=== PATIENT | male | born 1945 | race Caucasian/White ===

== ENCOUNTER 2017-02-24 12:06 | Inpatient (IN) | payer MEDICARE, OTHER ==
--- NOTE | 2017-02-24 13:12 | ED ---
General Adult HPI - General Chief complaint: Shortness of Breath Stated complaint: pneumonia Time Seen by Provider: 02/24/17 12:19 Source: patient, RN notes reviewed, old records reviewed Mode of arrival: wheelchair Limitations: no limitations - History of Present Illness Initial comments: This is a 71-year-old female to the ER for evaluation today. This patient's presenting for evaluation regards to shortness of breath cough congestion diagnoses of likely pneumonia. Patient has history of heart disease high blood pressure heart failure. Patient complaining of increasing shortness of breath increasing cough congestion, no fevers. No recent travel history no recent sick contacts, patient denies recent hospitalizations - Related Data Home Medications Medication Instructions Recorded Confirmed Cholecalciferol [Vitamin D3] 5,000 unit PO DAILY 12/20/14 02/24/17 Diazepam [Valium] 10 mg PO HS PRN 12/20/14 02/24/17 Furosemide [Lasix] 40 mg PO DAILY 12/20/14 02/24/17 Levothyroxine Sodium [Synthroid] 100 mcg PO DAILY 12/20/14 02/24/17 Losartan Potassium [Cozaar] 25 mg PO HS 12/20/14 02/24/17 Metoprolol Succinate [Toprol XL] 50 mg PO BID 12/20/14 02/24/17 Multivit-Min/FA/Lycopen/Lutein 1 tab PO DAILY 12/20/14 02/24/17 [Centrum Silver Tablet] Potassium Chloride [Klor-Con 20] 20 meq PO DAILY 12/20/14 02/24/17 Rivaroxaban [Xarelto] 20 mg PO W/SUPPER 12/20/14 02/24/17 Aspirin 81 mg PO DAILY 02/24/17 02/24/17 metFORMIN HCL [Glucophage Xr] 750 mg PO PC-SUPPER 02/24/17 02/24/17 Allergies Allergy/AdvReac Type Severity Reaction Status Date / Time No Known Allergies Allergy Verified 02/24/17 13:05 Review of Systems ROS Statement: Those systems with pertinent positive or pertinent negative responses have been documented in the HPI. ROS Other: All systems not noted in ROS Statement are negative. Past Medical History Past Medical History: Heart Failure, Diabetes Mellitus, Hypertension, Myocardial Infarction ([place]), Osteoarthritis (OA), Thyroid Disorder Additional Past Medical History / Comment(s): TOLD HAD "STROKE OR [place]." CARDIOMYOPATHY. SEE DR MACDONALD'S H&P. HX ALCOHOLISM. SHORT OF BREATH W/ ACTIVITY. Last Myocardial Infarction Date:: UNKNOWN History of Any Multi-Drug Resistant Organisms: None Reported Past Surgical History: AICD Additional Past Surgical History / Comment(s): AICD - [employer] 08/24/[address] [facility]. COLONOSCOPY. Past Anesthesia/Blood Transfusion Reactions: No Reported Reaction Type of Cardiac Device: AICD Device Placement Date:: 08/2014 Past Psychological History: Anxiety, Depression Smoking Status: Former smoker - Past Family History Mother Family Medical History: No Reported History General Exam Limitations: no limitations General appearance: alert, in no apparent distress Head exam: Present: atraumatic, normocephalic, normal inspection Eye exam: Present: normal appearance, PERRL, EOMI. Absent: scleral icterus, conjunctival injection, periorbital swelling ENT exam: Present: normal exam, mucous membranes moist Neck exam: Present: normal inspection. Absent: tenderness, meningismus, lymphadenopathy Respiratory exam: Present: normal lung sounds bilaterally. Absent: respiratory distress, wheezes, rales, rhonchi, stridor Cardiovascular Exam: Present: regular rate, normal rhythm, normal heart sounds. Absent: systolic murmur, diastolic murmur, rubs, gallop, clicks GI/Abdominal exam: Present: soft, normal bowel sounds. Absent: distended, tenderness, guarding, rebound, rigid Extremities exam: Present: normal inspection, full ROM, normal capillary refill. Absent: tenderness, pedal edema, joint swelling, calf tenderness Back exam: Present: normal inspection Neurological exam: Present: alert, oriented X3, CN II-XII intact Psychiatric exam: Present: normal affect, normal mood Skin exam: Present: warm, dry, intact, normal color. Absent: rash Course Vital Signs 02/24/17 02/24/17 02/24/17 12:20 12:40 13:30 Temperature 97.3 F L Pulse Rate 82 73 Respiratory 24 24 24 Rate Blood Pressure 154/64 O2 Sat by Pulse 92 L 89 L Oximetry 02/24/17 02/24/17 13:35 13:55 Temperature Pulse Rate 84 91 Respiratory Rate Blood Pressure O2 Sat by Pulse Oximetry - Reevaluation(s) Reevaluation #1: 02/24/17 14:31 Patient feels better after breathing treatment, cough is improved Medical Decision Making - Medical Decision Making 68 female the ER for evaluation. This patient presents today for evaluation regarding cough and congestion x-ray positive for pneumonia. Patient will be admitted for IV antibiotics. Continuous breathing treatments and monitoring of cardiopulmonary status - Lab Data Result diagrams: 02/24/17 12:50 02/24/17 12:50 Lab Results 02/24/17 02/24/17 02/24/17 Range/Units 12:50 12:50 12:50 WBC 10.4 (3.8-10.6) k/uL RBC 4.16 L (4.30-5.90) m/uL Hgb 13.2 (13.0-17.5) gm/dL Hct 42.9 (39.0-53.0) % MCV 103.2 H (80.0-100.0) fL MCH 31.8 (25.0-35.0) pg MCHC 30.8 L (31.0-37.0) g/dL RDW 15.7 H (11.5-15.5) % Plt Count 313 (150-450) k/uL Neutrophils % (Manual) 70 % Band Neutrophils % 1 % Lymphocytes % (Manual) 25 % Monocytes % (Manual) 5 % Eosinophils % (Manual) 1 % Myelocytes % 1 % Neutrophils # (Manual) 7.30 (1.3-7.7) k/uL Lymphocytes # (Manual) 2.60 (1.0-4.8) k/uL Monocytes # (Manual) 0.52 (0-1.0) k/uL Eosinophils # (Manual) 0.10 (0-0.7) k/uL Myelocytes # (Manual) 0.10 H (0) k/uL Nucleated RBCs 0 (0-0) /100 WBC Manual Slide Review Performed Toxic Granulation Present Large Platelets Present Hypochromasia Slight Poikilocytosis (manual Present Macrocytosis Slight PT (9.0-12.0) sec INR (<1.2) APTT (22.0-30.0) sec Sodium 140 (137-145) mmol/L Potassium 3.5 (3.5-5.1) mmol/L Chloride 97 L (98-107) mmol/L Carbon Dioxide 29 (22-30) mmol/L Anion Gap 14 mmol/L BUN 10 (9-20) mg/dL Creatinine 0.90 (0.66-1.25) mg/dL Est GFR (MDRD) Af Amer >60 (>60 ml/min/1.73 sqM) Est GFR (MDRD) Non-Af >60 (>60 ml/min/1.73 sqM) Glucose 132 H (74-99) mg/dL Plasma Lactic Acid Saul (0.7-2.0) mmol/L Calcium 9.7 (8.4-10.2) mg/dL Total Bilirubin 0.7 (0.2-1.3) mg/dL AST 49 (17-59) U/L ALT 56 (21-72) U/L Alkaline Phosphatase 114 (38-126) U/L Total Creatine Kinase 45 L (55-170) U/L CK-MB (CK-2) 2.2 (0.0-2.4) ng/mL CK-MB (CK-2) Rel Index 4.9 Troponin I 0.045 H* (0.000-0.034) ng/mL Total Protein 7.9 (6.3-8.2) g/dL Albumin 3.8 (3.5-5.0) g/dL 02/24/17 02/24/17 Range/Units 12:50 12:50 WBC (3.8-10.6) k/uL RBC (4.30-5.90) m/uL Hgb (13.0-17.5) gm/dL Hct (39.0-53.0) % MCV (80.0-100.0) fL MCH (25.0-35.0) pg MCHC (31.0-37.0) g/dL RDW (11.5-15.5) % Plt Count (150-450) k/uL Neutrophils % (Manual) % Band Neutrophils % % Lymphocytes % (Manual) % Monocytes % (Manual) % Eosinophils % (Manual) % Myelocytes % % Neutrophils # (Manual) (1.3-7.7) k/uL Lymphocytes # (Manual) (1.0-4.8) k/uL Monocytes # (Manual) (0-1.0) k/uL Eosinophils # (Manual) (0-0.7) k/uL Myelocytes # (Manual) (0) k/uL Nucleated RBCs (0-0) /100 WBC Manual Slide Review Toxic Granulation Large Platelets Hypochromasia Poikilocytosis (manual Macrocytosis PT 15.5 H (9.0-12.0) sec INR 1.7 H (<1.2) APTT 35.0 H (22.0-30.0) sec Sodium (137-145) mmol/L Potassium (3.5-5.1) mmol/L Chloride (98-107) mmol/L Carbon Dioxide (22-30) mmol/L Anion Gap mmol/L BUN (9-20) mg/dL Creatinine (0.66-1.25) mg/dL Est GFR (MDRD) Af Amer (>60 ml/min/1.73 sqM) Est GFR (MDRD) Non-Af (>60 ml/min/1.73 sqM) Glucose (74-99) mg/dL Plasma Lactic Acid Saul 1.3 (0.7-2.0) mmol/L Calcium (8.4-10.2) mg/dL Total Bilirubin (0.2-1.3) mg/dL AST (17-59) U/L ALT (21-72) U/L Alkaline Phosphatase (38-126) U/L Total Creatine Kinase (55-170) U/L CK-MB (CK-2) (0.0-2.4) ng/mL CK-MB (CK-2) Rel Index Troponin I (0.000-0.034) ng/mL Total Protein (6.3-8.2) g/dL Albumin (3.5-5.0) g/dL - Radiology Data Radiology results: report reviewed (Chest x-rays positive for pneumonia), image reviewed Disposition Clinical Impression: Acute exacerbation of chronic obstructive airways disease, Community acquired pneumonia Disposition: ADMITTED IP TO THIS [facility] Condition: Fair Referrals: Mal Ley DO [Primary Care Provider] - 1-2 days
[2017-02-24 13:15] LABS: HCT 42.9 % (39.0-53.0); HGB 13.2 gm/dL (13.0-17.5); Hypochromasia Slight; MCH 31.8 pg (25.0-35.0); MCHC 30.8 g/dL (31.0-37.0); MCV 103.2 fL (80.0-100.0); Macrocytosis Slight; Mean Platelet Volume 10.1; Platelet Count 313 k/uL (150-450); RBC 4.16 m/uL (4.30-5.90); RDW 15.7 % (11.5-15.5); WBC 10.4 k/uL (3.8-10.6)
--- NOTE | 2017-02-24 13:16 | XR ---
EXAMINATION TYPE: XR chest 2V DATE OF EXAM: 02/24/2017 COMPARISON: NONE INDICATION: Difficulty breathing short of breath TECHNIQUE: Frontal and lateral views of the chest are obtained. FINDINGS: The heart size is normal. The pulmonary vasculature is normal. There is a lingular infiltrate present. Minimal right lower lobe infiltrate may be present. Pacemaker overlies left chest.. IMPRESSION: 1. Lingular infiltrate with possible minimal right lower lobe infiltrate. Correlate for pneumonia.
[2017-02-24 13:22] LABS: ALT 56 U/L (21-72); AST 49 U/L (17-59); Albumin 3.8 g/dL (3.5-5.0); Alkaline Phosphatase 114 U/L (38-126); Anion Gap 14 mmol/L; Blood Urea Nitrogen 10 mg/dL (9-20); Calcium 9.7 mg/dL (8.4-10.2); Carbon Dioxide 29 mmol/L (22-30); Chloride 97 mmol/L (98-107); Glucose 132 mg/dL (74-99); INR 1.7 (<1.2); Potassium 3.5 mmol/L (3.5-5.1); Prothrombin Time 15.5 sec (9.0-12.0); Sodium 140 mmol/L (137-145); Total Bilirubin 0.7 mg/dL (0.2-1.3); Total Protein 7.9 g/dL (6.3-8.2)
[2017-02-24] MEDS ORDERED: IPRATROPIUM-ALBUTEROL 3 ML NEB INHALATION STA (13:29)
[2017-02-24 13:35] LABS: Band Neutrophils % 1 %; Myelocytes % 1 %; Nucleated Red Blood Cells 0 /100 WBC (0-0)
[2017-02-24 13:37] LABS: Large Platelets Present; Monocytes # (M) 0.52 k/uL (0-1.0); Neutrophils % (M) 70 %; Total Cells Counted 200
[2017-02-24 13:38] LABS: Poikilocytosis (M) Present; Toxic Granulation Present
[2017-02-24 13:42] LABS: Creatine Kinase MB 2.2 ng/mL (0.0-2.4)
[2017-02-24 13:46] LABS: Troponin I 0.045 ng/mL (0.000-0.034)
[2017-02-24] MEDS ORDERED: LEVOFLOXACIN 750MG-D5W PMX 750 MG in DEXTROSE/WATER 1 150ML.BAG IVPB STA (14:19)
[2017-02-24] MEDS ORDERED: PNEUMONIA PROTOCOL UTILIZED 1 EACH MISC PO PRN (14:19)
[2017-02-24] MEDS ORDERED: SODIUM CHLORIDE 0.9% 1,000 ML IV SCH (14:30)
[2017-02-24] MEDS: INSULIN ASPART 100 UNIT/ML 1 ML 10 ML VIAL SQ SCH ×2 (17:08→22:42)
[2017-02-24] MEDS: RIVAROXABAN 10 MG TAB PO SCH (17:08)
[2017-02-24] MEDS: metFORMIN 500 MG TAB PO SCH (17:09)
[2017-02-24] MEDS: THIAMINE 100 MG TAB PO SCH (17:09)
[2017-02-24 17:12] LABS: Glucose,Whole Blood 105 mg/dL (75-99)
[2017-02-24] MEDS: METOPROLOL SUCCINATE (ER) 50 MG TAB.ER.24H PO SCH (20:00)
[2017-02-24] MEDS: LOSARTAN 25 MG TAB PO SCH (20:00)
[2017-02-24 20:27] LABS: Glucose,Whole Blood 113 mg/dL (75-99)
--- NOTE | 2017-02-24 22:36 | P.HPIM ---
History of Present Illness H&P Date: 02/24/17 Chief Complaint: Shortness of breath Patient is a 71-year-old male with a known history of hypertension, diabetes type 2 [id number], atrial fibrillation on anticoagulation and also history of pacemaker/AICD placement came to ER with complaints of shortness of breath and cough with yellowish sputum production and was telling that he has pneumonia. Patient had similar symptoms when he had pneumonia a few years ago. Denied any fever or chills. No recent illnesses. Patient was initially presented to [facility] on February 08 status post fall when he was picking up mailbox. Patient left AMA after 4 today and after 4 days patient went to [facility] where he was admitted for 4-5 days. Patient was sent home and he still having shortness of breath and worsening cough at this time which made him come to ER. Otherwise patient denied any nausea vomiting or abdominal pain. No recent travel. Denied any leg swelling. Patient continues to smoke 1 pack per day. Patient did drink 1/5th for 3 consecutive days about a week back. Patient says that he quit alcohol 4 years ago Chest x-ray showed lingular infiltrate and was admitted to hospital for pneumonia. Troponin 0.045 angina 0.049 Review of Systems Constitutional: Patient denies any fever or chills . No generalized weakness or weight loss. Abdomen: Patient denied nausea vomiting and diarrhea and abdominal pain. Cardiovascular: Patient denies any chest pain . no palpitations. Respiratory: Patient does have cough with yellowish sputum production and shortness of breath Neurologic: Patient denied any numbness or tingling headache. Musculoskeletal: Patient denies any complaints of joint swelling or deformity. Skin: Negative Psychiatric: Negative Endocrine: No heat or cold intolerance. No recent weight gain. Genitourinary: No dysuria or hematuria. All other 14 point ROS negative except the above Past Medical History Past Medical History: Heart Failure, Diabetes Mellitus, Hypertension, Myocardial Infarction ([place]), Osteoarthritis ([place]), Thyroid Disorder Additional Past Medical History / Comment(s): TOLD HAD "STROKE OR [place]." CARDIOMYOPATHY. SEE DR MACDONALD'S H&P. HX ALCOHOLISM. SHORT OF BREATH W/ ACTIVITY. Last Myocardial Infarction Date:: UNKNOWN History of Any Multi-Drug Resistant Organisms: None Reported Past Surgical History: AICD Additional Past Surgical History / Comment(s): AICD - [employer] 08/24/14 AT [facility]. COLONOSCOPY. Past Anesthesia/Blood Transfusion Reactions: No Reported Reaction Type of Cardiac Device: AICD Device Placement Date:: 08/2014 Past Psychological History: Anxiety, Depression Smoking Status: Former smoker - Past Family History Mother Family Medical History: No Reported History Father History Unknown: Yes Additional Family Medical History / Comment(s): was healthy Medications and Allergies Home Medications Medication Instructions Recorded Confirmed Type Cholecalciferol [Vitamin D3] 5,000 unit PO DAILY 12/20/14 02/24/17 History Diazepam [Valium] 10 mg PO HS PRN 12/20/14 02/24/17 History Furosemide [Lasix] 40 mg PO DAILY 12/20/14 02/24/17 History Levothyroxine Sodium [Synthroid] 100 mcg PO DAILY 12/20/14 02/24/17 History Losartan Potassium [Cozaar] 25 mg PO HS 12/20/14 02/24/17 History Metoprolol Succinate [Toprol XL] 50 mg PO BID 12/20/14 02/24/17 History Multivit-Min/FA/Lycopen/Lutein 1 tab PO DAILY 12/20/14 02/24/17 History [Centrum Silver Tablet] Potassium Chloride [Klor-Con 20] 20 meq PO DAILY 12/20/14 02/24/17 History Rivaroxaban [Xarelto] 20 mg PO W/SUPPER 12/20/14 02/24/17 History Aspirin 81 mg PO DAILY 02/24/17 02/24/17 History metFORMIN HCL [Glucophage Xr] 750 mg PO PC-SUPPER 02/24/17 02/24/17 History Allergies Allergy/AdvReac Type Severity Reaction Status Date / Time No Known Allergies Allergy Verified 02/24/17 13:05 Physical Exam Vitals: Vital Signs Temp Pulse Resp BP Pulse Ox 02/24/17 15:51 98.6 F 100 18 123/65 98 02/24/17 14:51 112 H 20 125/73 97 02/24/17 13:55 91 02/24/17 13:35 84 02/24/17 13:30 73 24 89 L 02/24/17 12:40 24 02/24/17 12:20 97.3 F L 82 24 154/64 92 L Intake and Output 02/24/17 02/24/17 02/24/17 06:59 14:59 22:59 Other: Weight 58.967 kg Patient Weight 02/25/17 06:59 Weight 58.967 kg PHYSICAL EXAMINATION: Patient is lying in the bed comfortably, mild distress, awake alert and oriented.. HEENT: Normocephalic. Neck is supple. Pupils reactive. Nostrils clear. Oral cavity is moist. Ears reveal no drainage. Neck reveals no JVD, carotid bruits, or thyromegaly. CHEST EXAMINATION: Trachea is central. Symmetrical expansion. Bilateral diminished breath sounds basally. Rhonchi present. No wheezing CARDIAC: Normal S1, S2 with no gallops. No murmurs ABDOMEN: Soft. Bowel sounds normal. No organomegaly. No abdominal bruits. Extremities: reveal no edema. No clubbing or cyanosis Neurologically awake, alert, oriented x3 with well-coordinated movements. No focal deficits noted Skin: No rash or skin lesions. Psychiatric: Cooperative. Nonsuicidal Musculoskeletal: No joint swelling or deformity. Normal range of motion. Results CBC & Chem 7: 02/24/17 12:50 02/24/17 12:50 Labs: Abnormal Lab Results - Last 24 Hours (Table) 02/24/17 02/24/17 02/24/17 Range/Units 12:50 12:50 12:50 RBC 4.16 L (4.30-5.90) m/uL MCV 103.2 H (80.0-100.0) fL MCHC 30.8 L (31.0-37.0) g/dL RDW 15.7 H (11.5-15.5) % Myelocytes # (Manual) 0.10 H (0) k/uL PT (9.0-12.0) sec INR (<1.2) APTT (22.0-30.0) sec Chloride 97 L (98-107) mmol/L Glucose 132 H (74-99) mg/dL Total Creatine Kinase 45 L (55-170) U/L Troponin I 0.045 H* (0.000-0.034) ng/mL 02/24/17 Range/Units 12:50 RBC (4.30-5.90) m/uL MCV (80.0-100.0) fL MCHC (31.0-37.0) g/dL RDW (11.5-15.5) % Myelocytes # (Manual) (0) k/uL PT 15.5 H (9.0-12.0) sec INR 1.7 H (<1.2) APTT 35.0 H (22.0-30.0) sec Chloride (98-107) mmol/L Glucose (74-99) mg/dL Total Creatine Kinase (55-170) U/L Troponin I (0.000-0.034) ng/mL Assessment and Plan Assessment: Left lower lobe pneumonia and tracheobronchitis Elevated troponin likely due to demand mismatch. Rule out ACS Atrial fibrillation on anticoagulation. Rate controlled Hypertension Diabetes type 2 [id number] Hypothyroidism Recent alcohol use Nicotine addiction Plan: Patient will be continued on antibiotics in the form of levofloxacin. Follow- up serial EKG and troponins. We will check a BNP. Continue with home medications. Smoking cessation has been counseled. We will consider cardiology evaluation. Further recommendations based on clinical course. Sputum culture has been sent. Time with Patient: Greater than 30
[2017-02-25 05:43] LABS: HCT 39.8 % (39.0-53.0); HGB 12.4 gm/dL (13.0-17.5); Hypochromasia Slight; MCH 31.5 pg (25.0-35.0); MCHC 31.1 g/dL (31.0-37.0); Macrocytosis Slight; Mean Platelet Volume 9.5; Platelet Count 268 k/uL (150-450); RBC 3.94 m/uL (4.30-5.90); RDW 15.6 % (11.5-15.5); WBC 8.9 k/uL (3.8-10.6)
[2017-02-25 05:55] LABS: Anion Gap 10 mmol/L; Blood Urea Nitrogen 7 mg/dL (9-20); Calcium 8.8 mg/dL (8.4-10.2); Carbon Dioxide 26 mmol/L (22-30); Chloride 103 mmol/L (98-107); Glucose 102 mg/dL (74-99); Potassium 3.7 mmol/L (3.5-5.1); Sodium 139 mmol/L (137-145)
[2017-02-25] MEDS: LEVOTHYROXINE 100 MCG TAB PO SCH (06:00)
[2017-02-25] MEDS: INSULIN ASPART 100 UNIT/ML 1 ML 10 ML VIAL SQ SCH ×4 (06:09→23:17)
[2017-02-25 06:12] LABS: Glucose,Whole Blood 93 mg/dL (75-99)
--- NOTE | 2017-02-25 07:18 | XR ---
EXAMINATION TYPE: XR chest 2V DATE OF EXAM: 02/25/2017 COMPARISON: 02/24/2017 HISTORY: 71-year-old male follow-up pneumonia TECHNIQUE: Frontal and lateral views FINDINGS: Heart remains borderline enlarged. Mild elongation thoracic aorta. Upper lung lucencies and hyperinfl ation. Possible old sternal fracture deformity versus pectus carinatum deformity. Left anterior chest wall AICD generator with right ventricular lead. Persistent patchy interstitial infiltrates remain w ith its light interval improved aeration at the left lung base. No significant pleural effusion. IMPRESSION: Patchy infiltrates remain at the lung bases with slight interval improved aeration at the left base. Underlying COPD.
[2017-02-25 07:26] LABS: Lymphocytes # (M) 2.14 k/uL (1.0-4.8); Monocytes # (M) 0.53 k/uL (0-1.0); Neutrophils # (M) 6.23 k/uL (1.3-7.7); Neutrophils % (M) 70 %; Nucleated Red Blood Cells 0 /100 WBC (0-0); Total Cells Counted 100
[2017-02-25 07:27] LABS: Target Cells Present
[2017-02-25] MEDS: CHOLECALCIFEROL 1,000 UNIT TAB PO SCH (08:33)
[2017-02-25] MEDS: metFORMIN 500 MG TAB PO SCH ×2 (08:33→17:19)
[2017-02-25] MEDS: THIAMINE 100 MG TAB PO SCH (08:33)
[2017-02-25] MEDS: METOPROLOL SUCCINATE (ER) 50 MG TAB.ER.24H PO SCH ×2 (08:33→19:27)
[2017-02-25] MEDS: ASPIRIN 81 MG PO SCH (08:33)
[2017-02-25] MEDS: MULTIVITAMINS, THERA 1 EACH TAB PO SCH (08:33)
[2017-02-25] MEDS ORDERED: ENOXAPARIN 40 MG/0.4 ML SYRINGE SQ SCH (09:00)
[2017-02-25 12:12] LABS: Glucose,Whole Blood 109 mg/dL (75-99)
[2017-02-25] MEDS: LEVOFLOXACIN 750MG-D5W PMX 750 MG in DEXTROSE/WATER 1 150ML.BAG IVPB SCH (15:17)
[2017-02-25] MEDS: IPRATROPIUM-ALBUTEROL 3 ML NEB INHALATION SCH ×2 (16:43→21:15)
[2017-02-25 16:52] LABS: Glucose,Whole Blood 116 mg/dL (75-99)
[2017-02-25] MEDS: RIVAROXABAN 10 MG TAB PO SCH (17:19)
[2017-02-25] MEDS: LOSARTAN 25 MG TAB PO SCH (19:27)
[2017-02-25 21:11] LABS: Glucose,Whole Blood 132 mg/dL (75-99)
[2017-02-25] MEDS: DIAZEPAM 5 MG TAB PO PRN (23:11)
[2017-02-26 05:41] LABS: Glucose,Whole Blood 104 mg/dL (75-99)
[2017-02-26] MEDS: LEVOTHYROXINE 100 MCG TAB PO SCH (06:20)
[2017-02-26] MEDS: INSULIN ASPART 100 UNIT/ML 1 ML 10 ML VIAL SQ SCH ×4 (06:21→23:24)
[2017-02-26] MEDS: IPRATROPIUM-ALBUTEROL 3 ML NEB INHALATION SCH ×4 (07:58→19:24)
[2017-02-26] MEDS: CHOLECALCIFEROL 1,000 UNIT TAB PO SCH (08:24)
[2017-02-26] MEDS: METOPROLOL SUCCINATE (ER) 50 MG TAB.ER.24H PO SCH ×2 (08:24→23:25)
[2017-02-26] MEDS: MULTIVITAMINS, THERA 1 EACH TAB PO SCH (08:24)
[2017-02-26] MEDS: metFORMIN 500 MG TAB PO SCH ×2 (08:24→17:01)
[2017-02-26] MEDS: ASPIRIN 81 MG PO SCH (08:24)
[2017-02-26] MEDS: THIAMINE 100 MG TAB PO SCH (08:25)
[2017-02-26 12:42] LABS: Glucose,Whole Blood 301 mg/dL (75-99)
[2017-02-26] MEDS: LEVOFLOXACIN 750MG-D5W PMX 750 MG in DEXTROSE/WATER 1 150ML.BAG IVPB SCH (14:44)
[2017-02-26] MEDS: RIVAROXABAN 10 MG TAB PO SCH (16:58)
[2017-02-26 18:05] LABS: Glucose,Whole Blood 72 mg/dL (75-99)
[2017-02-26 20:54] LABS: Glucose,Whole Blood 177 mg/dL (75-99)
--- NOTE | 2017-02-26 21:08 | P.PN ---
Subjective Progress Note Date: 02/25/17 Principal diagnosis: Pneumonia Patient is a 71-year-old male with a known history of hypertension, diabetes type 2 [id number], atrial fibrillation on anticoagulation and also history of pacemaker/AICD placement came to ER with complaints of shortness of breath and cough with yellowish sputum production and was telling that he has pneumonia. Patient had similar symptoms when he had pneumonia a few years ago. Denied any fever or chills. No recent illnesses. Patient was initially presented to [facility] on February 08 status post fall when he was picking up mailbox. Patient left AMA after 4 today and after 4 days patient went to [facility] where he was admitted for 4-5 days. Patient was sent home and he still having shortness of breath and worsening cough at this time which made him come to ER. Otherwise patient denied any nausea vomiting or abdominal pain. No recent travel. Denied any leg swelling. Patient continues to smoke 1 pack per day. Patient did drink 1/5th for 3 consecutive days about a week back. Patient says that he quit alcohol 4 years ago Chest x-ray showed lingular infiltrate and was admitted to hospital for pneumonia. Troponin 0.045 and 0.049 and troponin 045 BNP 5330 02/25/2017 Patient says that his cough is better today and shortness of breath is improving. Otherwise not at baseline. No fever no chills. Leukocytosis improved. No nausea vomiting or abdominal pain. Patient is not eating well. No other acute overnight issues. All other review of systems negative except the above Current medications reviewed Objective - Vital Signs Vital signs: Vital Signs Temp 98.3 F 02/25/17 16:00 Pulse 75 02/25/17 16:58 Resp 20 02/25/17 16:00 BP 113/57 02/25/17 16:00 Pulse Ox 98 02/25/17 16:00 Intake & Output 02/25/17 02/25/17 02/26/17 06:59 18:59 06:59 Intake Total 140 240 Output Total 300 750 Balance -160 -510 Weight 64.5 kg Intake: Oral 140 240 Output: Urine 300 750 Other: Voiding Method Diaper Diaper # Voids 0 1 - Exam Patient is lying in the bed comfortably, mild distress, awake alert and oriented.. HEENT: Normocephalic. Neck is supple. Pupils reactive. Nostrils clear. Oral cavity is moist. Ears reveal no drainage. Neck reveals no JVD, carotid bruits, or thyromegaly. CHEST EXAMINATION: Trachea is central. Symmetrical expansion. Bilateral improved air movement. Rhonchi improved. Mild expiratory wheezing CARDIAC: Normal S1, S2 with no gallops. No murmurs ABDOMEN: Soft. Bowel sounds normal. No organomegaly. No abdominal bruits. Extremities: reveal no edema. No clubbing or cyanosis Neurologically awake, alert, oriented x3 with well-coordinated movements. No focal deficits noted Skin: No rash or skin lesions. Psychiatric: Cooperative. Nonsuicidal Musculoskeletal: No joint swelling or deformity. Normal range of motion. - Labs CBC & Chem 7: 02/25/17 05:24 02/25/17 05:24 Labs: Abnormal Lab Results - Last 24 Hours (Table) 02/24/17 02/25/17 02/25/17 Range/Units 17:54 00:26 05:24 RBC 3.94 L (4.30-5.90) m/uL Hgb 12.4 L (13.0-17.5) gm/dL MCV 101.0 H (80.0-100.0) fL RDW 15.6 H (11.5-15.5) % BUN (9-20) mg/dL Glucose (74-99) mg/dL POC Glucose (mg/dL) (75-99) mg/dL Hemoglobin A1c 7.0 H (4.0-6.0) % Troponin I 0.045 H* (0.000-0.034) ng/mL 02/25/17 02/25/17 02/25/17 Range/Units 05:24 11:49 16:49 RBC (4.30-5.90) m/uL Hgb (13.0-17.5) gm/dL MCV (80.0-100.0) fL RDW (11.5-15.5) % BUN 7 L (9-20) mg/dL Glucose 102 H (74-99) mg/dL POC Glucose (mg/dL) 109 H 116 H (75-99) mg/dL Hemoglobin A1c (4.0-6.0) % Troponin I (0.000-0.034) ng/mL Microbiology - Last 24 Hours (Table) 02/24/17 12:50 Blood Culture - Preliminary Blood No Growth after 24 hours Assessment and Plan Assessment: Left lower lobe pneumonia and tracheobronchitis Elevated troponin likely due to demand mismatch. Ruled out ACS. Troponin trending down. Atrial fibrillation on anticoagulation. Rate controlled Elevated BNP. But no signs of heart failure. History of AICD placement Hypertension Diabetes type 2 [id number] Hypothyroidism Recent alcohol use Nicotine addiction Plan: Patient will be continued on antibiotics in the form of levofloxacin. Patient will be started on DuoNeb's. Sputum culture showed few gram-positive cocci. Continue with home medications. Smoking cessation has been counseled. We will consider cardiology evaluation. Further recommendations based on clinical course. Sputum culture has been sent. Time with Patient: Greater than 30
--- NOTE | 2017-02-26 21:09 | P.PN ---
Subjective Progress Note Date: 02/26/17 Principal diagnosis: Pneumonia Patient is a 71-year-old male with a known history of hypertension, diabetes type 2 [id number]-fcruffuij, atrial fibrillation on anticoagulation and also history of pacemaker/AICD placement came to ER with complaints of shortness of breath and cough with yellowish sputum production and was telling that he has pneumonia. Patient had similar symptoms when he had pneumonia a few years ago. Denied any fever or chills. No recent illnesses. Patient was initially presented to [facility] on February 08 status post fall when he was picking up mailbox. Patient left AMA after 4 today and after 4 days patient went to [facility] where he was admitted for 4-5 days. Patient was sent home and he still having shortness of breath and worsening cough at this time which made him come to ER. Otherwise patient denied any nausea vomiting or abdominal pain. No recent travel. Denied any leg swelling. Patient continues to smoke 1 pack per day. Patient did drink 1/5th for 3 consecutive days about a week back. Patient says that he quit alcohol 4 years ago Chest x-ray showed lingular infiltrate and was admitted to hospital for pneumonia. Troponin 0.045 and 0.049 and troponin 045 BNP 5330 02/25/2017 Patient says that his cough is better today and shortness of breath is improving. Otherwise not at baseline. No fever no chills. Leukocytosis improved. No nausea vomiting or abdominal pain. Patient is not eating well. No other acute overnight issues. 02/26/2017 Patient is improving clinically. Cough improved. PTOT consulted. Patient may need rehab transfer. Otherwise no fever no chills. Continued on antibiotics and breathing treatments. All other review of systems negative except the above Current medications reviewed Objective - Vital Signs Vital signs: Vital Signs Temp 97.7 F 02/26/17 08:00 Pulse 100 02/26/17 12:00 Resp 19 02/26/17 12:00 BP 102/48 02/26/17 12:00 Pulse Ox 91 L 02/26/17 12:00 Intake & Output 02/25/17 02/26/17 02/26/17 18:59 06:59 18:59 Intake Total 240 200 360 Output Total 750 300 Balance -510 200 60 Weight 65 kg 65 kg Intake: Oral 240 200 360 Output: Urine 750 300 Other: Voiding Method Diaper Diaper # Voids 1 - Exam Patient is lying in the bed comfortably, mild distress, awake alert and oriented.. HEENT: Normocephalic. Neck is supple. Pupils reactive. Nostrils clear. Oral cavity is moist. Ears reveal no drainage. Neck reveals no JVD, carotid bruits, or thyromegaly. CHEST EXAMINATION: Trachea is central. Symmetrical expansion. Bilateral improved air movement. Rhonchi improved. CARDIAC: Normal S1, S2 with no gallops. No murmurs ABDOMEN: Soft. Bowel sounds normal. No organomegaly. No abdominal bruits. Extremities: reveal no edema. No clubbing or cyanosis Neurologically awake, alert, oriented x3 with well-coordinated movements. No focal deficits noted Skin: No rash or skin lesions. Psychiatric: Cooperative. Nonsuicidal Musculoskeletal: No joint swelling or deformity. Normal range of motion. - Labs CBC & Chem 7: 02/25/17 05:24 02/25/17 05:24 Labs: Abnormal Lab Results - Last 24 Hours (Table) 02/25/17 02/25/17 02/26/17 Range/Units 16:49 21:08 05:39 POC Glucose (mg/dL) 116 H 132 H 104 H (75-99) mg/dL 02/26/17 Range/Units 11:41 POC Glucose (mg/dL) 301 H (75-99) mg/dL Microbiology - Last 24 Hours (Table) 02/25/17 21:29 Gram Stain - Preliminary Sputum Sputum Culture - Preliminary 02/24/17 12:50 Blood Culture - Preliminary Blood No Growth after 24 hours Assessment and Plan Assessment: Left lower lobe pneumonia and tracheobronchitis Elevated troponin likely due to demand mismatch. Ruled out ACS. Troponin trending down. Atrial fibrillation on anticoagulation. Rate controlled Elevated BNP. But no signs of heart failure. History of AICD placement Hypertension Diabetes type 2 [id number]-wqepuukep Hypothyroidism Recent alcohol use Nicotine addiction Plan: Patient will be continued on antibiotics in the form of levofloxacin. Patient will be started on DuoNeb's. Sputum culture showed few gram-positive cocci. Continue with home medications. Smoking cessation has been counseled. PTOT consulted. Possible rehab transfer in next 24 hours. Further recommendations based on clinical course. Sputum culture has been sent.
[2017-02-26] MEDS: LOSARTAN 25 MG TAB PO SCH (23:25)
[2017-02-26] MEDS: DIAZEPAM 5 MG TAB PO PRN (23:36)
[2017-02-27 06:14] LABS: Glucose,Whole Blood 98 mg/dL (75-99)
[2017-02-27] MEDS: LEVOTHYROXINE 100 MCG TAB PO SCH (06:23)
[2017-02-27 06:58] LABS: HCT 35.4 % (39.0-53.0); HGB 11.4 gm/dL (13.0-17.5); MCH 32.2 pg (25.0-35.0); MCHC 32.3 g/dL (31.0-37.0); MCV 99.7 fL (80.0-100.0); Macrocytosis Slight; Mean Platelet Volume 9.8; Platelet Count 260 k/uL (150-450); RBC 3.55 m/uL (4.30-5.90); RDW 15.5 % (11.5-15.5); WBC 7.9 k/uL (3.8-10.6)
[2017-02-27 07:11] LABS: Anion Gap 9 mmol/L; Blood Urea Nitrogen 7 mg/dL (9-20); Calcium 9.6 mg/dL (8.4-10.2); Carbon Dioxide 29 mmol/L (22-30); Chloride 100 mmol/L (98-107); Glucose 100 mg/dL (74-99); Potassium 3.9 mmol/L (3.5-5.1); Sodium 138 mmol/L (137-145)
[2017-02-27 07:23] LABS: Basophils # (M) 0.16 k/uL (0-0.2); Eosinophils # (M) 0.16 k/uL (0-0.7); Lymphocytes # (M) 1.74 k/uL (1.0-4.8); Monocytes # (M) 0.47 k/uL (0-1.0); Neutrophils # (M) 5.37 k/uL (1.3-7.7); Neutrophils % (M) 68 %; Nucleated Red Blood Cells 0 /100 WBC (0-0); Total Cells Counted 100
[2017-02-27] MEDS: INSULIN ASPART 100 UNIT/ML 1 ML 10 ML VIAL SQ SCH ×4 (08:30→21:32)
[2017-02-27] MEDS: MULTIVITAMINS, THERA 1 EACH TAB PO SCH (08:31)
[2017-02-27] MEDS: METOPROLOL SUCCINATE (ER) 50 MG TAB.ER.24H PO SCH ×2 (08:31→21:32)
[2017-02-27] MEDS: ASPIRIN 81 MG PO SCH (08:31)
[2017-02-27] MEDS: CHOLECALCIFEROL 1,000 UNIT TAB PO SCH (08:31)
[2017-02-27] MEDS: IPRATROPIUM-ALBUTEROL 3 ML NEB INHALATION SCH ×4 (09:31→18:51)
[2017-02-27 12:13] LABS: Glucose,Whole Blood 176 mg/dL (75-99)
[2017-02-27] MEDS: THIAMINE 100 MG TAB PO SCH (12:39)
[2017-02-27] MEDS: LEVOFLOXACIN 750 MG TAB PO SCH (15:07)
[2017-02-27 17:12] LABS: Glucose,Whole Blood 78 mg/dL (75-99)
[2017-02-27] MEDS: RIVAROXABAN 10 MG TAB PO SCH (17:58)
[2017-02-27] MEDS: metFORMIN 500 MG TAB PO SCH (17:58)
[2017-02-27 21:18] LABS: Glucose,Whole Blood 160 mg/dL (75-99)
[2017-02-27] MEDS: LOSARTAN 25 MG TAB PO SCH (21:32)
[2017-02-27] MEDS: DIAZEPAM 5 MG TAB PO PRN (21:32)
[2017-02-28] MEDS: LEVOTHYROXINE 100 MCG TAB PO SCH (06:29)
[2017-02-28 07:34] LABS: Glucose,Whole Blood 107 mg/dL (75-99)
[2017-02-28] MEDS: INSULIN ASPART 100 UNIT/ML 1 ML 10 ML VIAL SQ SCH ×4 (07:55→21:20)
[2017-02-28] MEDS: IPRATROPIUM-ALBUTEROL 3 ML NEB INHALATION SCH ×4 (08:27→20:47)
[2017-02-28] MEDS: METOPROLOL SUCCINATE (ER) 50 MG TAB.ER.24H PO SCH ×2 (09:05→20:16)
[2017-02-28] MEDS: MULTIVITAMINS, THERA 1 EACH TAB PO SCH (09:05)
[2017-02-28] MEDS: THIAMINE 100 MG TAB PO SCH (09:05)
[2017-02-28] MEDS: CHOLECALCIFEROL 1,000 UNIT TAB PO SCH (09:05)
[2017-02-28] MEDS: ASPIRIN 81 MG PO SCH (09:06)
[2017-02-28 11:42] LABS: Glucose,Whole Blood 189 mg/dL (75-99)
[2017-02-28] MEDS: LEVOFLOXACIN 750 MG TAB PO SCH (15:04)
[2017-02-28 17:07] LABS: Glucose,Whole Blood 70 mg/dL (75-99)
[2017-02-28] MEDS: metFORMIN 500 MG TAB PO SCH (17:07)
[2017-02-28] MEDS: RIVAROXABAN 10 MG TAB PO SCH (17:08)
[2017-02-28] MEDS: LOSARTAN 25 MG TAB PO SCH (20:16)
[2017-02-28] MEDS: CALCIUM CARBONATE 500 MG CHEWABLE PO PRN (20:25)
[2017-02-28 21:02] LABS: Glucose,Whole Blood 192 mg/dL (75-99)
[2017-02-28] MEDS: DIAZEPAM 5 MG TAB PO PRN (21:20)
--- NOTE | 2017-03-01 01:01 | P.PN ---
Subjective Progress Note Date: 02/28/17 Principal diagnosis: Pneumonia Patient is a 71-year-old male with a known history of hypertension, diabetes type 2 hck-dsgzwma-trnjishsy, atrial fibrillation on anticoagulation and also history of pacemaker/AICD placement came to ER with complaints of shortness of breath and cough with yellowish sputum production and was telling that he has pneumonia. Patient had similar symptoms when he had pneumonia a few years ago. Denied any fever or chills. No recent illnesses. Patient was initially presented to [facility] on February 08 status post fall when he was picking up mailbox. Patient left AMA after 4 today and after 4 days patient went to [facility] where he was admitted for 4-5 days. Patient was sent home and he still having shortness of breath and worsening cough at this time which made him come to ER. Otherwise patient denied any nausea vomiting or abdominal pain. No recent travel. Denied any leg swelling. Patient continues to smoke 1 pack per day. Patient did drink 1/5th for 3 consecutive days about a week back. Patient says that he quit alcohol 4 years ago Chest x-ray showed lingular infiltrate and was admitted to hospital for pneumonia. Troponin 0.045 and 0.049 and troponin 045 BNP 5330 02/25/2017 Patient says that his cough is better today and shortness of breath is improving. Otherwise not at baseline. No fever no chills. Leukocytosis improved. No nausea vomiting or abdominal pain. Patient is not eating well. No other acute overnight issues. 02/26/2017 Patient is improving clinically. Cough improved. PTOT consulted. Patient may need rehab transfer. Otherwise no fever no chills. Continued on antibiotics and breathing treatments. 02/27/2017 Patient says that he is very weak today. No complaints of chest pain. Shortness of breath is improving. No other acute overnight issues. 02/28/2017 Patient is improving clinically. Anticipate discharged torehab in next 24 hours. All other review of systems negative except the above Current medications reviewed Objective - Vital Signs Vital signs: Vital Signs Temp 98.7 F 02/28/17 15:00 Pulse 96 02/28/17 21:06 Resp 16 02/28/17 16:00 BP 101/68 02/28/17 20:15 Pulse Ox 92 L 02/28/17 16:36 Intake & Output 02/28/17 02/28/1703/01/18 06:59 18:59 06:59 Intake Total 150 Output Total 250 Balance -100 Weight 66 kg Intake: Oral 150 Output: Urine 250 Other: Voiding Method Toilet Urinal Diaper # Voids 1 1 1 # Bowel Movements 1 - Exam Patient is lying in the bed comfortably, mild distress, awake alert and oriented.. HEENT: Normocephalic. Neck is supple. Pupils reactive. Nostrils clear. Oral cavity is moist. Ears reveal no drainage. Neck reveals no JVD, carotid bruits, or thyromegaly. CHEST EXAMINATION: Trachea is central. Symmetrical expansion. Bilateral improved air movement. Rhonchi improved. CARDIAC: Normal S1, S2 with no gallops. No murmurs ABDOMEN: Soft. Bowel sounds normal. No organomegaly. No abdominal bruits. Extremities: reveal no edema. No clubbing or cyanosis Neurologically awake, alert, oriented x3 with well-coordinated movements. No focal deficits noted Skin: No rash or skin lesions. Psychiatric: Cooperative. Nonsuicidal Musculoskeletal: No joint swelling or deformity. Normal range of motion. - Labs CBC & Chem 7: 02/27/17 06:17 02/27/17 06:17 Labs: Abnormal Lab Results - Last 24 Hours (Table) 02/28/17 02/28/17 02/28/17 Range/Units 07:31 11:35 16:59 POC Glucose (mg/dL) 107 H 189 H 70 L (75-99) mg/dL 02/28/17 Range/Units 20:54 POC Glucose (mg/dL) 192 H (75-99) mg/dL Microbiology - Last 24 Hours (Table) 02/24/17 12:50 Blood Culture - Preliminary Blood No Growth after 96 hours 02/25/17 21:29 Gram Stain - Final Sputum Sputum Culture - Final Assessment and Plan Assessment: Left lower lobe pneumonia and tracheobronchitis Elevated troponin likely due to demand mismatch. Ruled out ACS. Troponin trending down. Atrial fibrillation on anticoagulation. Rate controlled Elevated BNP. But no signs of heart failure. History of AICD placement Hypertension Diabetes type 2 oud-hmlbitz-ilhypjnyv Hypothyroidism Recent alcohol use Nicotine addiction Plan: Patient will be continued on antibiotics in the form of levofloxacin. Patient will be started on DuoNeb's. Sputum culture showed few gram-positive cocci. Continue with home medications. Smoking cessation has been counseled. PTOT consulted. Possible rehab transfer in next 24 hours. Further recommendations based on clinical course.
--- NOTE | 2017-03-01 01:01 | P.PN ---
Subjective Progress Note Date: 02/27/17 Principal diagnosis: Pneumonia Patient is a 71-year-old male with a known history of hypertension, diabetes type 2 ixf-wudbwws-coqimkeyg, atrial fibrillation on anticoagulation and also history of pacemaker/AICD placement came to ER with complaints of shortness of breath and cough with yellowish sputum production and was telling that he has pneumonia. Patient had similar symptoms when he had pneumonia a few years ago. Denied any fever or chills. No recent illnesses. Patient was initially presented to [facility] on February 08 status post fall when he was picking up mailbox. Patient left AMA after 4 today and after 4 days patient went to [facility] where he was admitted for 4-5 days. Patient was sent home and he still having shortness of breath and worsening cough at this time which made him come to ER. Otherwise patient denied any nausea vomiting or abdominal pain. No recent travel. Denied any leg swelling. Patient continues to smoke 1 pack per day. Patient did drink 1/5th for 3 consecutive days about a week back. Patient says that he quit alcohol 4 years ago Chest x-ray showed lingular infiltrate and was admitted to hospital for pneumonia. Troponin 0.045 and 0.049 and troponin 045 BNP 5330 02/25/2017 Patient says that his cough is better today and shortness of breath is improving. Otherwise not at baseline. No fever no chills. Leukocytosis improved. No nausea vomiting or abdominal pain. Patient is not eating well. No other acute overnight issues. 02/26/2017 Patient is improving clinically. Cough improved. PTOT consulted. Patient may need rehab transfer. Otherwise no fever no chills. Continued on antibiotics and breathing treatments. 02/27/2017 Patient says that he is very weak today. No complaints of chest pain. Shortness of breath is improving. No other acute overnight issues. All other review of systems negative except the above Current medications reviewed Objective - Vital Signs Vital signs: Vital Signs Temp 96.7 F L 02/27/17 15:50 Pulse 84 02/27/17 19:01 Resp 20 02/27/17 17:00 BP 87/41 02/27/17 15:50 Pulse Ox 94 L 02/27/17 19:38 Intake & Output 02/27/17 02/27/17 02/28/17 06:59 18:59 06:59 Intake Total 220 Output Total 200 250 Balance -200 -30 Weight 66 kg Intake: Oral 220 Output: Urine 200 250 Other: Voiding Method Toilet Toilet Urinal Urinal Diaper Diaper # Voids 1 - Exam Patient is lying in the bed comfortably, mild distress, awake alert and oriented.. HEENT: Normocephalic. Neck is supple. Pupils reactive. Nostrils clear. Oral cavity is moist. Ears reveal no drainage. Neck reveals no JVD, carotid bruits, or thyromegaly. CHEST EXAMINATION: Trachea is central. Symmetrical expansion. Bilateral improved air movement. Rhonchi improved. CARDIAC: Normal S1, S2 with no gallops. No murmurs ABDOMEN: Soft. Bowel sounds normal. No organomegaly. No abdominal bruits. Extremities: reveal no edema. No clubbing or cyanosis Neurologically awake, alert, oriented x3 with well-coordinated movements. No focal deficits noted Skin: No rash or skin lesions. Psychiatric: Cooperative. Nonsuicidal Musculoskeletal: No joint swelling or deformity. Normal range of motion. - Labs CBC & Chem 7: 02/27/17 06:17 02/27/17 06:17 Labs: Abnormal Lab Results - Last 24 Hours (Table) 02/27/17 02/27/17 02/27/17 Range/Units 06:17 06:17 11:51 RBC 3.55 L (4.30-5.90) m/uL Hgb 11.4 L (13.0-17.5) gm/dL Hct 35.4 L (39.0-53.0) % BUN 7 L (9-20) mg/dL Glucose 100 H (74-99) mg/dL POC Glucose (mg/dL) 176 H (75-99) mg/dL 02/27/17 Range/Units 21:11 RBC (4.30-5.90) m/uL Hgb (13.0-17.5) gm/dL Hct (39.0-53.0) % BUN (9-20) mg/dL Glucose (74-99) mg/dL POC Glucose (mg/dL) 160 H (75-99) mg/dL Microbiology - Last 24 Hours (Table) 02/24/17 12:50 Blood Culture - Preliminary Blood No Growth after 72 hours Assessment and Plan Assessment: Left lower lobe pneumonia and tracheobronchitis Elevated troponin likely due to demand mismatch. Ruled out ACS. Troponin trending down. Atrial fibrillation on anticoagulation. Rate controlled Elevated BNP. But no signs of heart failure. History of AICD placement Hypertension Diabetes type 2 [id number]-ldfdnguxk Hypothyroidism Recent alcohol use Nicotine addiction Plan: Patient will be continued on antibiotics in the form of levofloxacin. Patient will be started on DuoNeb's. Sputum culture showed few gram-positive cocci. Continue with home medications. Smoking cessation has been counseled. PTOT consulted. Possible rehab transfer in next 24 hours. Further recommendations based on clinical course.
[2017-03-01] MEDS: LEVOTHYROXINE 100 MCG TAB PO SCH (06:18)
[2017-03-01 07:13] LABS: Glucose,Whole Blood 123 mg/dL (75-99)
[2017-03-01] MEDS: INSULIN ASPART 100 UNIT/ML 1 ML 10 ML VIAL SQ SCH ×4 (07:16→21:00)
[2017-03-01] MEDS: IPRATROPIUM-ALBUTEROL 3 ML NEB INHALATION SCH ×4 (07:39→20:47)
[2017-03-01] MEDS: MULTIVITAMINS, THERA 1 EACH TAB PO SCH (09:07)
[2017-03-01] MEDS: METOPROLOL SUCCINATE (ER) 50 MG TAB.ER.24H PO SCH ×2 (09:07→20:59)
[2017-03-01] MEDS: CHOLECALCIFEROL 1,000 UNIT TAB PO SCH (09:07)
[2017-03-01] MEDS: THIAMINE 100 MG TAB PO SCH (09:07)
[2017-03-01] MEDS: ASPIRIN 81 MG PO SCH (09:08)
[2017-03-01] MEDS: metFORMIN 500 MG TAB PO SCH ×2 (09:22→09:25)
[2017-03-01 12:21] LABS: Glucose,Whole Blood 180 mg/dL (75-99)
[2017-03-01] MEDS: LEVOFLOXACIN 750 MG TAB PO SCH (14:35)
[2017-03-01 16:40] LABS: Glucose,Whole Blood 82 mg/dL (75-99)
--- NOTE | 2017-03-01 16:48 | P.DS ---
Providers Date of admission: 02/24/17 14:19 Expected date of discharge: 03/01/17 Attending physician: Cindy Stallings Primary care physician: Mal Ley [facility] Course: Discharge diagnosis Left lower lobe pneumonia and tracheobronchitis Elevated troponin likely due to demand mismatch. Ruled out ACS. Troponin trending down. Atrial fibrillation on anticoagulation. Rate controlled Elevated BNP. But no signs of heart failure. History of AICD placement Hypertension Diabetes type 2 [id number]-ydzhceoan Hypothyroidism Recent alcohol use Nicotine addiction Hospital course Patient is a 71-year-old male with a known history of hypertension, diabetes type 2 mbx-ziypajm-qjevmmgti, atrial fibrillation on anticoagulation and also history of pacemaker/AICD placement came to ER with complaints of shortness of breath and cough with yellowish sputum production and was telling that he has pneumonia. Patient had similar symptoms when he had pneumonia a few years ago. Denied any fever or chills. No recent illnesses. Patient was initially presented to [facility] on February 08 status post fall when he was picking up mailbox. Patient left AMA after 4 today and after 4 days patient went to [facility] where he was admitted for 4-5 days. Patient was sent home and he still having shortness of breath and worsening cough at this time which made him come to ER. Otherwise patient denied any nausea vomiting or abdominal pain. No recent travel. Denied any leg swelling. Patient continues to smoke 1 pack per day. Patient did drink 1/5th for 3 consecutive days about a week back. Patient says that he quit alcohol 4 years ago Chest x-ray showed lingular infiltrate and was admitted to hospital for pneumonia. Troponin 0.045 and 0.049 and troponin 045 BNP 5330 02/25/2017 Patient says that his cough is better today and shortness of breath is improving. Otherwise not at baseline. No fever no chills. Leukocytosis improved. No nausea vomiting or abdominal pain. Patient is not eating well. No other acute overnight issues. 02/26/2017 Patient is improving clinically. Cough improved. PTOT consulted. Patient may need rehab transfer. Otherwise no fever no chills. Continued on antibiotics and breathing treatments. 02/27/2017 Patient says that he is very weak today. No complaints of chest pain. Shortness of breath is improving. No other acute overnight issues. 02/28/2017 Patient is improving clinically. Anticipate discharged torehab in next 24 hours. 03/01/2017 Patient denied any new complaints today. Presents status is much improved. Able to participate in physical therapy. Patient was continued on antibiotics in the form of levofloxacin. Patient will be started on DuoNeb's. Sputum culture showed few gram-positive cocci. Continued with home medications. Patient did improve symptomatically. Patient feels very weak and PTOT was started. Smoking cessation has been counseled. PTOT consulted. Stable to be transferred to rehab. Discharge physical examination Patient is lying in the bed comfortably, mild distress, awake alert and oriented.. HEENT: Normocephalic. Neck is supple. Pupils reactive. Nostrils clear. Oral cavity is moist. Ears reveal no drainage. Neck reveals no JVD, carotid bruits, or thyromegaly. CHEST EXAMINATION: Trachea is central. Symmetrical expansion. Clear to auscultation. No wheezing or rhonchi. CARDIAC: Normal S1, S2 with no gallops. No murmurs ABDOMEN: Soft. Bowel sounds normal. No organomegaly. No abdominal bruits. Extremities: reveal no edema. No clubbing or cyanosis Neurologically awake, alert, oriented x3 with well-coordinated movements. No focal deficits noted Skin: No rash or skin lesions. Psychiatric: Cooperative. Nonsuicidal Musculoskeletal: No joint swelling or deformity. Normal range of motion. Total time taken greater than 35 minutes including 18 minutes for counseling and coordination of care. Patient Condition at Discharge: Fair Plan - Discharge Summary Discharge Rx Participant: No New Discharge Prescriptions: New Levofloxacin [Levaquin] 750 mg PO Q24H 5 Days #5 tab Continue Multivit-Min/FA/Lycopen/Lutein [Centrum Silver Tablet] 1 tab PO DAILY Rivaroxaban [Xarelto] 20 mg PO W/SUPPER Cholecalciferol [Vitamin D3] 5,000 unit PO DAILY Levothyroxine Sodium [Synthroid] 100 mcg PO DAILY Metoprolol Succinate [Toprol XL] 50 mg PO BID Losartan Potassium [Cozaar] 25 mg PO HS Diazepam [Valium] 10 mg PO HS PRN PRN Reason: Insomnia Aspirin 81 mg PO DAILY metFORMIN HCL [Glucophage Xr] 750 mg PO PC-SUPPER Changed Furosemide [Lasix] 20 mg PO DAILY #0 Potassium Chloride [Klor-Con 20] 10 meq PO DAILY #0 Discharge Medication List Cholecalciferol [Vitamin D3] 5,000 unit PO DAILY 12/20/14 [History] Diazepam [Valium] 10 mg PO HS PRN 12/20/14 [History] Levothyroxine Sodium [Synthroid] 100 mcg PO DAILY 12/20/14 [History] Losartan Potassium [Cozaar] 25 mg PO HS 12/20/14 [History] Metoprolol Succinate [Toprol XL] 50 mg PO BID 12/20/14 [History] Multivit-Min/FA/Lycopen/Lutein [Centrum Silver Tablet] 1 tab PO DAILY 12/20/14 [ History] Rivaroxaban [Xarelto] 20 mg PO W/SUPPER 12/20/14 [History] Aspirin 81 mg PO DAILY 02/24/17 [History] metFORMIN HCL [Glucophage Xr] 750 mg PO PC-SUPPER 02/24/17 [History] Furosemide [Lasix] 20 mg PO DAILY #0 02/27/17 [Rx] Levofloxacin [Levaquin] 750 mg PO Q24H 5 Days #5 tab 02/27/17 [Rx] Potassium Chloride [Klor-Con 20] 10 meq PO DAILY #0 02/27/17 [Rx] Follow up Appointment(s)/Referral(s): [facility], [NON-STAFF] - Mal Ley DO [Primary Care Provider] - 1-2 days Patient Instructions/Handouts: Heart Failure (DC), Type 2 Diabetes in Adults ( [place]), Pneumonia (DC) Discharge Disposition: TRANSFER TO SNF/ECF
[2017-03-01] MEDS: RIVAROXABAN 10 MG TAB PO SCH (16:51)
[2017-03-01 20:50] LABS: Glucose,Whole Blood 118 mg/dL (75-99)
[2017-03-01] MEDS: LOSARTAN 25 MG TAB PO SCH (21:00)
[2017-03-01] MEDS: DIAZEPAM 5 MG TAB PO PRN (21:07)
[2017-03-01] MEDS: CALCIUM CARBONATE 500 MG CHEWABLE PO PRN (21:16)
--- NOTE | 2017-03-01 23:48 | P.PN ---
Subjective Progress Note Date: 03/01/17 Principal diagnosis: Pneumonia Patient is a 71-year-old male with a known history of hypertension, diabetes type 2 wkg-oxlauou-vqwbfukni, atrial fibrillation on anticoagulation and also history of pacemaker/AICD placement came to ER with complaints of shortness of breath and cough with yellowish sputum production and was telling that he has pneumonia. Patient had similar symptoms when he had pneumonia a few years ago. Denied any fever or chills. No recent illnesses. Patient was initially presented to [facility] on February 08 status post fall when he was picking up mailbox. Patient left AMA after 4 today and after 4 days patient went to [facility] where he was admitted for 4-5 days. Patient was sent home and he still having shortness of breath and worsening cough at this time which made him come to ER. Otherwise patient denied any nausea vomiting or abdominal pain. No recent travel. Denied any leg swelling. Patient continues to smoke 1 pack per day. Patient did drink 1/5th for 3 consecutive days about a week back. Patient says that he quit alcohol 4 years ago Chest x-ray showed lingular infiltrate and was admitted to hospital for pneumonia. Troponin 0.045 and 0.049 and troponin 045 BNP 5330 02/25/2017 Patient says that his cough is better today and shortness of breath is improving. Otherwise not at baseline. No fever no chills. Leukocytosis improved. No nausea vomiting or abdominal pain. Patient is not eating well. No other acute overnight issues. 02/26/2017 Patient is improving clinically. Cough improved. PTOT consulted. Patient may need rehab transfer. Otherwise no fever no chills. Continued on antibiotics and breathing treatments. 02/27/2017 Patient says that he is very weak today. No complaints of chest pain. Shortness of breath is improving. No other acute overnight issues. 02/28/2017 Patient is improving clinically. Anticipate discharged torehab in next 24 hours. 03/01/2017 No complains of chest pain or shortness of breath. Participating in physical therapy. Discharged to rehab when bed available. Otherwise no acute overnight issues. Continue with current antibiotics and breathing treatments. All other review of systems negative except the above Current medications reviewed Objective - Vital Signs Vital signs: Vital Signs Temp 96.4 F L 03/01/17 15:00 Pulse 92 03/01/17 20:58 Resp 18 03/01/17 16:13 BP 99/60 03/01/17 15:00 Pulse Ox 92 L 03/01/17 15:00 Intake & Output 03/01/17 03/01/17 03/02/17 06:59 18:59 06:59 Intake Total 300 Output Total 250 Balance 50 Weight 66 kg Intake: Oral 300 Output: Urine 250 Other: Voiding Method Toilet Toilet # Voids 2 2 # Bowel Movements 1 - Exam Patient is lying in the bed comfortably, mild distress, awake alert and oriented.. HEENT: Normocephalic. Neck is supple. Pupils reactive. Nostrils clear. Oral cavity is moist. Ears reveal no drainage. Neck reveals no JVD, carotid bruits, or thyromegaly. CHEST EXAMINATION: Trachea is central. Symmetrical expansion. Bilateral improved air movement. Rhonchi improved. CARDIAC: Normal S1, S2 with no gallops. No murmurs ABDOMEN: Soft. Bowel sounds normal. No organomegaly. No abdominal bruits. Extremities: reveal no edema. No clubbing or cyanosis Neurologically awake, alert, oriented x3 with well-coordinated movements. No focal deficits noted Skin: No rash or skin lesions. Psychiatric: Cooperative. Nonsuicidal Musculoskeletal: No joint swelling or deformity. Normal range of motion. - Labs CBC & Chem 7: 02/27/17 06:17 02/27/17 06:17 Labs: Abnormal Lab Results - Last 24 Hours (Table) 03/01/17 03/01/17 03/01/17 Range/Units 07:11 12:18 20:40 POC Glucose (mg/dL) 123 H 180 H 118 H (75-99) mg/dL Microbiology - Last 24 Hours (Table) 02/24/17 12:50 Blood Culture - Preliminary Blood No Growth after 120 hours Assessment and Plan Assessment: Left lower lobe pneumonia and tracheobronchitis Elevated troponin likely due to demand mismatch. Ruled out ACS. Troponin trending down. Atrial fibrillation on anticoagulation. Rate controlled Elevated BNP. But no signs of heart failure. History of AICD placement Hypertension Diabetes type 2 fnr-[id number]-xhyljogka Hypothyroidism Recent alcohol use Nicotine addiction Plan: Patient will be continued on antibiotics in the form of levofloxacin. Patient will be started on DuoNeb's. Sputum culture showed few gram-positive cocci. Continue with home medications. Smoking cessation has been counseled. PTOT consulted. Possible rehab transfer in next 24 hours. Further recommendations based on clinical course.
[2017-03-02] MEDS: LEVOTHYROXINE 100 MCG TAB PO SCH (06:38)
[2017-03-02] MEDS: IPRATROPIUM-ALBUTEROL 3 ML NEB INHALATION SCH ×4 (07:24→20:39)
[2017-03-02 07:58] LABS: Glucose,Whole Blood 112 mg/dL (75-99)
[2017-03-02] MEDS: MULTIVITAMINS, THERA 1 EACH TAB PO SCH (08:14)
[2017-03-02] MEDS: metFORMIN 500 MG TAB PO SCH (08:14)
[2017-03-02] MEDS: ASPIRIN 81 MG PO SCH (08:14)
[2017-03-02] MEDS: CHOLECALCIFEROL 1,000 UNIT TAB PO SCH (08:14)
[2017-03-02] MEDS: INSULIN ASPART 100 UNIT/ML 1 ML 10 ML VIAL SQ SCH ×4 (08:14→21:03)
[2017-03-02] MEDS: METOPROLOL SUCCINATE (ER) 50 MG TAB.ER.24H PO SCH ×2 (08:14→21:02)
[2017-03-02] MEDS: THIAMINE 100 MG TAB PO SCH (11:18)
[2017-03-02 11:54] VITALS: BMI 20.2
[2017-03-02 12:13] LABS: Glucose,Whole Blood 155 mg/dL (75-99)
[2017-03-02] MEDS: LEVOFLOXACIN 750 MG TAB PO SCH (15:07)
[2017-03-02] MEDS: RIVAROXABAN 10 MG TAB PO SCH (15:07)
[2017-03-02 17:03] LABS: Glucose,Whole Blood 98 mg/dL (75-99)
[2017-03-02 20:43] LABS: Glucose,Whole Blood 160 mg/dL (75-99)
[2017-03-02] MEDS: LOSARTAN 25 MG TAB PO SCH (21:02)
[2017-03-02] MEDS: CALCIUM CARBONATE 500 MG CHEWABLE PO PRN (21:02)
[2017-03-02] MEDS: DIAZEPAM 5 MG TAB PO PRN (21:03)
[2017-03-03] MEDS: LEVOTHYROXINE 100 MCG TAB PO SCH (06:34)
[2017-03-03 07:26] LABS: Glucose,Whole Blood 99 mg/dL (75-99)
[2017-03-03] MEDS: IPRATROPIUM-ALBUTEROL 3 ML NEB INHALATION SCH ×3 (07:28→15:48)
[2017-03-03] MEDS: INSULIN ASPART 100 UNIT/ML 1 ML 10 ML VIAL SQ SCH ×2 (07:33→11:45)
[2017-03-03] MEDS: metFORMIN 500 MG TAB PO SCH (07:38)
[2017-03-03] MEDS: METOPROLOL SUCCINATE (ER) 50 MG TAB.ER.24H PO SCH (07:38)
[2017-03-03] MEDS: ASPIRIN 81 MG PO SCH (07:38)
[2017-03-03] MEDS: MULTIVITAMINS, THERA 1 EACH TAB PO SCH (07:38)
[2017-03-03] MEDS: CHOLECALCIFEROL 1,000 UNIT TAB PO SCH (07:38)
[2017-03-03 07:39] VITALS: BP 112/67; RESP 16; TEMP 96.6
[2017-03-03 11:42] LABS: Glucose,Whole Blood 178 mg/dL (75-99)
[2017-03-03] MEDS: THIAMINE 100 MG TAB PO SCH (11:45)
[2017-03-03] MEDS: RIVAROXABAN 10 MG TAB PO SCH (15:27)
[2017-03-03] MEDS: LEVOFLOXACIN 750 MG TAB PO SCH (15:27)
--- NOTE | 2017-03-03 15:29 | DS ---
DISCHARGE SUMMARY DATE OF ADMISSION: 02/24/2017 DATE OF DISCHARGE: 03/03/2017 ADMISSION DIAGNOSES: 1. Left lower lobe pneumonia and tracheobronchitis. 2. Elevated troponin, most likely secondary to demand mismatch. 3. Atrial fibrillation. 4. Elevated BNP. 5. No overt congestive heart failure. BRIEF HISTORY: This was a 71-year-old male patient with a history of hypertension, diabetes mellitus type 2, atrial fibrillation on anticoagulation, history of pacemaker and AICD, who presented to ED with the complaint of shortness of breath and cough, productive of yellowish phlegm. Patient was treated at [facility] in the beginning of February after he had a fall. Patient was admitted to the hospital, but he left AMA. Patient presented to [facility] where he was admitted for 5 days with pneumonia. Upon discharge, patient continued to have shortness of breath and worsening cough and phlegm production so he presented to ED. BRIEF HOSPITAL COURSE: Patient was admitted on to general medical floor, was started on IV Levaquin for treatment of pneumonia. Patient had serial EKGs and troponins to rule out acute coronary syndrome, which was negative. BNP was followed and remained stable. Patient's home medications were continued. Patient was counseled on smoking cessation. Blood culture and sputum cultures were sent, which were unremarkable. Patient did show improvement with above treatment, but he remained very weak and shortness of breath with minimal exertion. He did not have any fever. White blood count remained normal. Patient was seen by PT and OT and was recommended to have skilled rehab. Patient is agreeable and is getting ready for discharge to a long term facility. Day of discharge his examination, patient is awake and alert. He is in no acute distress. VITAL SIGNS: Temperature of 96.6, pulse 82, respirations 16, blood pressure 112/67, O2 saturation 98% on 2 L. HEENT: Atraumatic, normocephalic. Pupils equal and reactive to light. Extraocular movements intact. Buccal mucosa is fair. Neck is supple. Lungs improving air entry. Heart is irregularly irregular. Abdomen is soft, nontender, nondistended. Bowel sounds positive. Extremities have positive trace edema. NEUROLOGICAL EXAMINATION: Cranial nerves 2 through 12 grossly intact. No gross motor sensory deficit. DISCHARGE MEDICATIONS: 1. The patient remains on albuterol DuoNeb aerosol treatments q.i.d. 2. Aspirin 81 mg p.o. daily. 3. Tums 500 mg p.o. t.i.d. p.r.n. 4. Vitamin D3 five thousand units p.o. daily. 5. Valium 10 mg p.o. q.h.s. p.r.n. for insomnia. 6. Levaquin 750 mg p.o. q.24 hours. 7. Levothyroxine 1000 mcg p.o. daily. 8. Losartan 25 mg p.o. q.h.s. 9. Metformin 750 mg p.o. daily. 10.Metoprolol-XL 50 mg p.o. b.i.d. 11.Xarelto 20 mg p.o. daily. 12.Thiamine 100 mg p.o. daily. Plan is to discharge patient to skilled rehab on above medications. Follow up with the primary care physician. Further recommendations per the clinical course at the rehab facility. JOE / JANETTE: [id number] /
[2017-03-03 16:06] VITALS: PULSE 80
== END 2017-03-03 16:19 | DRG 194 ==
LOC: EC 12:06 → 6SEL 14:19 → 4MS4W 02-27 15:43
PROVIDERS: ADMIT Hospitalist; ATTEND Hospitalist
DX: J18.9 Pneumonia, unspecified organism (principal); I42.9 Cardiomyopathy, unspecified; I11.0 Hypertensive heart disease with heart failure; I50.9 Heart failure, unspecified; I24.8 Other forms of acute ischemic heart disease; I48.91 Unspecified atrial fibrillation; E11.9 Type 2 diabetes mellitus without complications; E03.9 Hypothyroidism, unspecified; J40 Bronchitis, not specified as acute or chronic; F17.210 Nicotine dependence, cigarettes, uncomplicated; F32.9 Major depressive disorder, single episode, unspecified; F41.9 Anxiety disorder, unspecified; I25.2 Old myocardial infarction; W19.XXXA Unspecified fall, initial encounter; Z79.01 Long term (current) use of anticoagulants; Z79.82 Long term (current) use of aspirin; Z79.899 Other long term (current) drug therapy; Z86.73 Personal history of transient ischemic attack (TIA), and cerebral infarction without residual deficits; Z95.810 Presence of automatic (implantable) cardiac defibrillator; Z71.6 Tobacco abuse counseling
CPT/HCPCS: 36415; 71046; 80048; 80053; 82550; 82553; 83036; 83605; 83880; 84484; 85025; 85610; 85730; 87040; 87070; 87205; 93005; 94640; 94760; 96365; 99285

== ENCOUNTER 2018-04-06 20:26 | Emergency (ER) | payer MEDICARE, OTHER ==
[2018-04-06] MEDS ORDERED: MORPHINE SULFATE 2 MG/ML SYRINGE IVP STA (21:03)
[2018-04-06] MEDS ORDERED: methylPREDNISolone SOD SUCCI 125 MG/2 ML VIAL IV STA (21:03)
[2018-04-06] MEDS ORDERED: IPRATROPIUM-ALBUTEROL 3 ML NEB INHALATION STA (21:03)
--- NOTE | 2018-04-06 21:08 | ED ---
General Adult HPI - General Chief complaint: Back Pain/Injury Stated complaint: Back pain Time Seen by Provider: 04/06/18 20:44 Source: patient, EMS, RN notes reviewed Mode of arrival: EMS Limitations: no limitations - History of Present Illness Initial comments: Patient is a pleasant 72-year-old male presenting to the emergency Department with complaints of low back pain and cough. Symptoms have been occurring for several days. Patient did have a fall approximately 5 days ago while using his walker. Patient felt on his lower back and hurt his lower back. Discomfort has been persistent since that time. Patient also has been coughing for the past week or so. Patient does have productive yellow sputum. No fevers. No dyspnea. Patient does have some sinus congestion. Patient states he was diagnosed with pneumonia however a work shows she was diagnosed with bronchitis. Patient was given prescription for anabiotic however states he did not get this filled. No incontinence or retention of bowel or bladder. No weakness. - Related Data Home Medications Medication Instructions Recorded Confirmed Cholecalciferol [Vitamin D3] 5,000 unit PO DAILY 12/20/14 04/06/18 Diazepam [Valium] 10 mg PO HS PRN 12/20/14 04/06/18 Levothyroxine Sodium [Synthroid] 100 mcg PO DAILY 12/20/14 04/06/18 Losartan Potassium [Cozaar] 25 mg PO DAILY 12/20/14 04/06/18 Metoprolol Succinate [Toprol XL] 50 mg PO DAILY 12/20/14 04/06/18 Multivit-Min/FA/Lycopen/Lutein 1 tab PO DAILY 12/20/14 04/06/18 [Centrum Silver Tablet] Rivaroxaban [Xarelto] 20 mg PO DAILY 12/20/14 04/06/18 Aspirin 81 mg PO DAILY 02/24/17 04/06/18 metFORMIN HCL [Glucophage Xr] 750 mg PO DAILY 02/24/17 04/06/18 Ascorbic Acid [Vitamin C] 1,000 mg PO DAILY 04/06/18 04/06/18 Doxylamine Succinate [Unisom] 25 mg PO HS PRN 04/06/18 04/06/18 Ferrous Sulfate [Feosol] 325 mg PO DAILY 04/06/18 04/06/18 Melatonin 5 mg PO HS 04/06/18 04/06/18 Potassium Chloride [Klor-Con 20] 20 meq PO DAILY 04/06/18 04/06/18 Vitamin B Complex 1 cap PO DAILY 04/06/18 04/06/18 Previous Rx's Medication Instructions Recorded Furosemide [Lasix] 20 mg PO DAILY #0 02/27/17 Albuterol Inhaler [Ventolin Hfa 2 puff INHALATION Q4HR PRN #1 04/06/18 Inhaler] inhaler predniSONE 20 mg PO BID #10 tab 04/06/18 Allergies Allergy/AdvReac Type Severity Reaction Status Date / Time Penicillins Allergy Unknown Verified 04/06/18 21:28 Review of Systems ROS Statement: Those systems with pertinent positive or pertinent negative responses have been documented in the HPI. ROS Other: All systems not noted in ROS Statement are negative. Constitutional: Denies: fever Eyes: Denies: eye pain ENT: Denies: ear pain Respiratory: Reports: cough Cardiovascular: Denies: chest pain Endocrine: Denies: fatigue Gastrointestinal: Denies: abdominal pain Genitourinary: Denies: dysuria Musculoskeletal: Reports: as per HPI Skin: Denies: rash Neurological: Denies: weakness Past Medical History Past Medical History: Heart Failure, Diabetes Mellitus, Hypertension, Myocardial Infarction ([place]), Osteoarthritis (OA), Thyroid Disorder Additional Past Medical History / Comment(s): TOLD HAD "STROKE OR [place]." CARDIOMYOPATHY. SEE DR MACDONALD'S H&P. HX ALCOHOLISM. SHORT OF BREATH W/ ACTIVITY. Last Myocardial Infarction Date:: UNKNOWN History of Any Multi-Drug Resistant Organisms: None Reported Past Surgical History: AICD Additional Past Surgical History / Comment(s): AICD - [employer] 08/24/14 AT [facility]. COLONOSCOPY. Past Anesthesia/Blood Transfusion Reactions: No Reported Reaction Type of Cardiac Device: AICD Device Placement Date:: 08/2014 Past Psychological History: Anxiety, Depression Smoking Status: Former smoker - Past Family History Father History Unknown: Yes Additional Family Medical History / Comment(s): was healthy Mother Family Medical History: No Reported History General Exam Limitations: no limitations General appearance: alert, in no apparent distress Head exam: Present: atraumatic Eye exam: Present: normal appearance, PERRL ENT exam: Present: normal oropharynx Neck exam: Present: normal inspection Respiratory exam: Present: rhonchi Cardiovascular Exam: Present: regular rate, normal rhythm GI/Abdominal exam: Present: soft. Absent: tenderness Extremities exam: Present: normal inspection. Absent: pedal edema, calf tenderness Back exam: Present: tenderness (Mild tenderness lower lumbar spine) Neurological exam: Present: alert, oriented X3, CN II-XII intact. Absent: motor sensory deficit Expanded Neurological exam: Present: protecting the airway Patient oriented to: Present: person, place, time Speech: Present: fluid speech Sensory exam: Lower Extremity Light Touch: Normal Motor strength exam: RUE: 5, LUE: 5, RLE: 5, LLE: 5 Eye Response: (4) open spontaneously Motor Response: (6) obeys commands Verbal Response: (5) oriented Psychiatric exam: Present: normal affect, normal mood Skin exam: Present: normal color Course Vital Signs 04/06/18 04/06/18 04/06/18 20:48 22:05 22:14 Temperature 97.7 F Pulse Rate 114 H 107 H 108 H Respiratory 16 Rate Blood Pressure 111/92 O2 Sat by Pulse 96 Oximetry Medical Decision Making - Medical Decision Making Patient reevaluated and significantly improved. Patient states nebulizer treatment has also helped. Patient states this is the best he is felt in days. Patient updated on results and need for follow-up. - Lab Data Result diagrams: 04/06/18 21:29 04/06/18 21:29 Lab Results 04/06/18 04/06/18 04/06/18 Range/Units 21:29 21:29 21:29 WBC 13.5 H (3.8-10.6) k/uL RBC 4.59 (4.30-5.90) m/uL Hgb 15.1 (13.0-17.5) gm/dL Hct 44.8 (39.0-53.0) % MCV 97.5 (80.0-100.0) fL MCH 32.9 (25.0-35.0) pg MCHC 33.7 (31.0-37.0) g/dL RDW 13.4 (11.5-15.5) % Plt Count 186 (150-450) k/uL Neutrophils % 72 % Lymphocytes % 16 % Monocytes % 9 % Eosinophils % 0 % Basophils % 0 % Neutrophils # 9.7 H (1.3-7.7) k/uL Lymphocytes # 2.1 (1.0-4.8) k/uL Monocytes # 1.3 H (0-1.0) k/uL Eosinophils # 0.0 (0-0.7) k/uL Basophils # 0.0 (0-0.2) k/uL Sodium 142 (137-145) mmol/L Potassium 4.7 (3.5-5.1) mmol/L Chloride 100 (98-107) mmol/L Carbon Dioxide 23 (22-30) mmol/L Anion Gap 19 mmol/L BUN 33 H (9-20) mg/dL Creatinine 1.36 H (0.66-1.25) mg/dL Est GFR (CKD-EPI)AfAm 59 (>60 ml/min/1.73 sqM) Est GFR (CKD-EPI)NonAf 51 (>60 ml/min/1.73 sqM) Glucose 135 H (74-99) mg/dL Calcium 10.2 (8.4-10.2) mg/dL Total Bilirubin 1.2 (0.2-1.3) mg/dL AST 53 (17-59) U/L ALT 36 (21-72) U/L Alkaline Phosphatase 102 (38-126) U/L Total Protein 7.4 (6.3-8.2) g/dL Albumin 4.4 (3.5-5.0) g/dL Influenza Type A RNA Not Detected (Not Detectd) Influenza Type B (PCR) Not Detected (Not Detectd) - Radiology Data Radiology results: image reviewed (X-ray of the lumbar spine shows no definitive fracture or traumatic malalignment. Slight irregularity to the superior endplates L1 through L3 favored chronic. Chest x-ray shows no cardiopulmonary disease. Cardiomegaly.) Disposition Clinical Impression: Cough, Acute exacerbation of chronic obstructive airways disease, Low back pain Disposition: HOME SELF-CARE Condition: Stable Instructions (If sedation given, give patient instructions): Acute Low Back Pain (ED), Acute Cough (ED) Additional Instructions: Please follow-up with primary care physician in the next day or 2 for recheck. Return for difficulty breathing, weakness, worsening or change in symptoms or other concerns. Prescriptions: Albuterol Inhaler [Ventolin Hfa Inhaler] 2 puff INHALATION Q4HR PRN #1 inhaler PRN Reason: Dyspnea predniSONE 20 mg PO BID #10 tab Is patient prescribed a controlled substance at d/c from ED?: No Referrals: Odell Araiza MD [REFERRING] - 1-2 days Time of Disposition: 23:35
[2018-04-06 21:57] LABS: Basophils % (A) 0 %; Eosinophils % (A) 0 %; HCT 44.8 % (39.0-53.0); HGB 15.1 gm/dL (13.0-17.5); Lymphocytes # (A) 2.1 k/uL (1.0-4.8); Lymphocytes % (A) 16 %; MCH 32.9 pg (25.0-35.0); MCHC 33.7 g/dL (31.0-37.0); MCV 97.5 fL (80.0-100.0); Mean Platelet Volume 8.7; Monocytes # (A) 1.3 k/uL (0-1.0); Monocytes % (A) 9 %; Neutrophils # (A) 9.7 k/uL (1.3-7.7); Neutrophils % (A) 72 %; Platelet Count 186 k/uL (150-450); RBC 4.59 m/uL (4.30-5.90); RDW 13.4 % (11.5-15.5); WBC 13.5 k/uL (3.8-10.6)
--- NOTE | 2018-04-06 22:06 | XR ---
EXAMINATION TYPE: XR chest 2V DATE OF EXAM: 04/06/2018 COMPARISON: 02/25/2017 HISTORY: Chest pain TECHNIQUE: Frontal and lateral views of the chest are obtained. FINDINGS: There is no heart failure nor confluent pneumonic infiltrate. Heart is slightly enlarged. There is left axillary pacemaker. Bony thorax is intact. IMPRESSION: No active cardiopulmonary disease. There is clearing of the pulmonary interstitial edema compared to last exam. Cardiomegaly.
[2018-04-06 22:07] LABS: Albumin 4.4 g/dL (3.5-5.0); Calcium 10.2 mg/dL (8.4-10.2); Potassium 4.7 mmol/L (3.5-5.1); Total Bilirubin 1.2 mg/dL (0.2-1.3); Total Protein 7.4 g/dL (6.3-8.2)
--- NOTE | 2018-04-06 22:19 | XR ---
EXAM: XR Lumbar Spine, 2 or 3 Views CLINICAL HISTORY: ITS.REASON XR Reason: fall TECHNIQUE: Frontal and lateral views of the lumbar spine. COMPARISON: No relevant prior studies available. FINDINGS: Vertebrae: No definitive fracture or traumatic malalignment identified radiographically. Slight irregularities at the superior endplates of L1- L3 on lateral view may be related to prominent lateral intervertebral ossifications. Multilevel disc space height loss and osteophytosis. Soft tissues: Nonacute. IMPRESSION: 1. No definitive fracture or traumatic malalignment identified. Slight irregularities at the superior endplates of L1-L3 favored chronic as above.
[2018-04-06] MEDS ORDERED: SODIUM CHLORIDE 0.9% 1,000 ML IV STA (22:27)
[2018-04-07 00:19] VITALS: BP 114/73; PULSE 69; RESP 18; TEMP 97.9
== END 2018-04-07 01:18 | disposition home or self-care (01) ==
LOC: EC 20:26
DX: J44.1 Chronic obstructive pulmonary disease with (acute) exacerbation (principal); M54.5 Low back pain; I11.0 Hypertensive heart disease with heart failure; E11.9 Type 2 diabetes mellitus without complications; E07.9 Disorder of thyroid, unspecified; I25.2 Old myocardial infarction; I42.9 Cardiomyopathy, unspecified; F41.9 Anxiety disorder, unspecified; Z86.73 Personal history of transient ischemic attack (TIA), and cerebral infarction without residual deficits; Z87.891 Personal history of nicotine dependence; Z95.810 Presence of automatic (implantable) cardiac defibrillator; Z98.890 Other specified postprocedural states; Z79.01 Long term (current) use of anticoagulants; Z79.82 Long term (current) use of aspirin; Z79.84 Long term (current) use of oral hypoglycemic drugs; Z79.890 Hormone replacement therapy; Z79.899 Other long term (current) drug therapy; Z88.0 Allergy status to penicillin
CPT/HCPCS: 36415; 94640; 80053; 85025; 87502; 72100; 71046; 99284; 96374; 96375; J2930; J2270

== ENCOUNTER 2018-06-04 05:49 | Inpatient (IN) | payer MEDICARE, OTHER ==
--- NOTE | 2018-06-04 06:27 | XR ---
EXAM: XR Chest, 2 Views CLINICAL HISTORY: ITS.REASON XR Reason: difficulty breathing TECHNIQUE: Frontal and lateral views of the chest. COMPARISON: 04/06/18 FINDINGS: Mild cardiomegaly. No overt edema, consolidation or other acute cardiopulmonary process. Pacer. Old sternal fracture, stable compression deformities of the spine and other unchanged findings. IMPRESSION: No acute cardiopulmonary findings.
[2018-06-04 06:52] LABS: HCT 36.6 % (39.0-53.0); MCH 32.7 pg (25.0-35.0); MCHC 33.1 g/dL (31.0-37.0); MCV 98.7 fL (80.0-100.0); Mean Platelet Volume 8.7; Platelet Count 283 k/uL (150-450); RBC 3.71 m/uL (4.30-5.90); RDW 14.5 % (11.5-15.5); WBC 9.3 k/uL (3.8-10.6)
[2018-06-04 06:59] LABS: Albumin 3.5 g/dL (3.5-5.0); Calcium 8.6 mg/dL (8.4-10.2); Magnesium 1.5 mg/dL (1.6-2.3); Potassium 3.8 mmol/L (3.5-5.1); Total Bilirubin 0.8 mg/dL (0.2-1.3); Total Protein 6.6 g/dL (6.3-8.2)
[2018-06-04 07:02] LABS: INR 1.2 (<1.2); Partial Thromboplastin Time 29.5 sec (22.0-30.0); Prothrombin Time 12.9 sec (9.0-12.0)
[2018-06-04 07:09] LABS: HGB 12.1 gm/dL (13.0-17.5)
--- NOTE | 2018-06-04 07:26 | ED ---
General Adult HPI - General Chief complaint: Shortness of Breath Stated complaint: ARABELLA Time Seen by Provider: 06/04/18 06:55 Source: patient, RN notes reviewed Mode of arrival: EMS Limitations: no limitations - History of Present Illness Initial comments: Patient is a pleasant 72-year-old male presenting to the emergency department with difficulty breathing. Onset of symptoms was yesterday, worse today. Dyspnea is especially with exertion. No chest discomfort. Patient does have recent diagnosis of pneumonia and recently was discharged from the group home. Mild cough that is nonproductive. No fevers. No leg pain or leg swelling. Patient does take inhalers at home sometimes. - Related Data Home Medications Medication Instructions Recorded Confirmed Cholecalciferol [Vitamin D3] 5,000 unit PO DAILY 12/20/14 04/06/18 Diazepam [Valium] 10 mg PO HS PRN 12/20/14 04/06/18 Levothyroxine Sodium [Synthroid] 100 mcg PO DAILY 12/20/14 04/06/18 Losartan Potassium [Cozaar] 25 mg PO DAILY 12/20/14 04/06/18 Metoprolol Succinate [Toprol XL] 50 mg PO DAILY 12/20/14 04/06/18 Multivit-Min/FA/Lycopen/Lutein 1 tab PO DAILY 12/20/14 04/06/18 [Centrum Silver Tablet] Rivaroxaban [Xarelto] 20 mg PO DAILY 12/20/14 04/06/18 Aspirin 81 mg PO DAILY 02/24/17 04/06/18 metFORMIN HCL [Glucophage Xr] 750 mg PO DAILY 02/24/17 04/06/18 Ascorbic Acid [Vitamin C] 1,000 mg PO DAILY 04/06/18 04/06/18 Doxylamine Succinate [Unisom] 25 mg PO HS PRN 04/06/18 04/06/18 Ferrous Sulfate [Feosol] 325 mg PO DAILY 04/06/18 04/06/18 Melatonin 5 mg PO HS 04/06/18 04/06/18 Potassium Chloride [Klor-Con 20] 20 meq PO DAILY 04/06/18 04/06/18 Vitamin B Complex 1 cap PO DAILY 04/06/18 04/06/18 Previous Rx's Medication Instructions Recorded Furosemide [Lasix] 20 mg PO DAILY #0 02/27/17 Albuterol Inhaler [Ventolin Hfa 2 puff INHALATION Q4HR PRN #1 04/06/18 Inhaler] inhaler predniSONE 20 mg PO BID #10 tab 04/06/18 Allergies Allergy/AdvReac Type Severity Reaction Status Date / Time Penicillins Allergy Unknown Verified 04/06/18 21:28 Review of Systems ROS Statement: Those systems with pertinent positive or pertinent negative responses have been documented in the HPI. ROS Other: All systems not noted in ROS Statement are negative. Constitutional: Denies: fever Eyes: Denies: eye pain ENT: Denies: ear pain Respiratory: Reports: cough, dyspnea Cardiovascular: Denies: chest pain Endocrine: Reports: fatigue Gastrointestinal: Denies: abdominal pain Genitourinary: Denies: dysuria Musculoskeletal: Denies: back pain Skin: Denies: rash Neurological: Denies: weakness Past Medical History Past Medical History: Heart Failure, Diabetes Mellitus, Hypertension, Myocardial Infarction ([place]), Osteoarthritis ([place]), Thyroid Disorder Additional Past Medical History / Comment(s): TOLD HAD "STROKE OR [place]." CARDIOMYOPATHY. SEE DR MACDONALD'S H&P. HX ALCOHOLISM. SHORT OF BREATH W/ ACTIVITY. Last Myocardial Infarction Date:: UNKNOWN History of Any Multi-Drug Resistant Organisms: None Reported Past Surgical History: AICD Additional Past Surgical History / Comment(s): AICD - [employer] 08/24/14 AT [facility]. COLONOSCOPY. Past Anesthesia/Blood Transfusion Reactions: No Reported Reaction Type of Cardiac Device: AICD Device Placement Date:: 08/2014 Past Psychological History: Anxiety, Depression Smoking Status: Former smoker - Past Family History Father History Unknown: Yes Additional Family Medical History / Comment(s): was healthy Mother Family Medical History: No Reported History General Exam Limitations: no limitations General appearance: alert, in no apparent distress Head exam: Present: atraumatic Eye exam: Present: normal appearance, PERRL ENT exam: Present: normal oropharynx Neck exam: Present: normal inspection Respiratory exam: Present: decreased breath sounds Cardiovascular Exam: Present: irregular rhythm GI/Abdominal exam: Present: soft. Absent: tenderness Extremities exam: Present: normal inspection. Absent: pedal edema, calf tenderness Back exam: Present: normal inspection Neurological exam: Present: alert Psychiatric exam: Present: normal affect, normal mood Skin exam: Present: normal color Course Vital Signs 06/04/18 06/04/18 05:55 07:00 Temperature 97.7 F 97.8 F Pulse Rate 103 H 100 Respiratory 19 16 Rate Blood Pressure 100/69 90/62 O2 Sat by Pulse 96 99 Oximetry EKG Findings - EKG Comments: EKG Findings:: Intrafibrillation with a rate of 94. QRS 100. QT 370. QTc 472. Left axis. Septal Q waves. Lateral T wave inversion. Medical Decision Making - Medical Decision Making Digital has been paged for admission for hospital call. Patient was reevaluated and updated. - Lab Data Result diagrams: 06/04/18 06:30 06/04/18 06:30 Lab Results 06/04/18 06/04/18 06/04/18 Range/Units 06:30 06:30 06:30 WBC 9.3 (3.8-10.6) k/uL RBC 3.71 L (4.30-5.90) m/uL Hgb 12.1 L D (13.0-17.5) gm/dL Hct 36.6 L (39.0-53.0) % MCV 98.7 (80.0-100.0) fL MCH 32.7 (25.0-35.0) pg MCHC 33.1 (31.0-37.0) g/dL RDW 14.5 (11.5-15.5) % Plt Count 283 (150-450) k/uL PT 12.9 H (9.0-12.0) sec INR 1.2 H (<1.2) APTT 29.5 (22.0-30.0) sec Sodium 135 L (137-145) mmol/L Potassium 3.8 (3.5-5.1) mmol/L Chloride 101 (98-107) mmol/L Carbon Dioxide 24 (22-30) mmol/L Anion Gap 10 mmol/L BUN 15 (9-20) mg/dL Creatinine 1.11 (0.66-1.25) mg/dL Est GFR (CKD-EPI)AfAm 75 (>60 ml/min/1.73 sqM) Est GFR (CKD-EPI)NonAf 65 (>60 ml/min/1.73 sqM) Glucose 117 H (74-99) mg/dL Calcium 8.6 (8.4-10.2) mg/dL Magnesium 1.5 L (1.6-2.3) mg/dL Total Bilirubin 0.8 (0.2-1.3) mg/dL AST 35 (17-59) U/L ALT 29 (21-72) U/L Alkaline Phosphatase 98 (38-126) U/L Troponin I (0.000-0.034) ng/mL NT-Pro-B Natriuret Pep pg/mL Total Protein 6.6 (6.3-8.2) g/dL Albumin 3.5 (3.5-5.0) g/dL 06/04/18 06/04/18 Range/Units 06:30 06:30 WBC (3.8-10.6) k/uL RBC (4.30-5.90) m/uL Hgb (13.0-17.5) gm/dL Hct (39.0-53.0) % MCV (80.0-100.0) fL MCH (25.0-35.0) pg MCHC (31.0-37.0) g/dL RDW (11.5-15.5) % Plt Count (150-450) k/uL PT (9.0-12.0) sec INR (<1.2) APTT (22.0-30.0) sec Sodium (137-145) mmol/L Potassium (3.5-5.1) mmol/L Chloride (98-107) mmol/L Carbon Dioxide (22-30) mmol/L Anion Gap mmol/L BUN (9-20) mg/dL Creatinine (0.66-1.25) mg/dL Est GFR (CKD-EPI)AfAm (>60 ml/min/1.73 sqM) Est GFR (CKD-EPI)NonAf (>60 ml/min/1.73 sqM) Glucose (74-99) mg/dL Calcium (8.4-10.2) mg/dL Magnesium (1.6-2.3) mg/dL Total Bilirubin (0.2-1.3) mg/dL AST (17-59) U/L ALT (21-72) U/L Alkaline Phosphatase (38-126) U/L Troponin I 0.018 (0.000-0.034) ng/mL NT-Pro-B Natriuret Pep 4230 pg/mL Total Protein (6.3-8.2) g/dL Albumin (3.5-5.0) g/dL - Radiology Data Radiology results: image reviewed (Chest x-ray reveals no acute process) Disposition Clinical Impression: Congestive heart failure, Acute exacerbation of chronic obstructive airways disease Disposition: ADMITTED IP TO THIS HOSP Is patient prescribed a controlled substance at d/c from ED?: No Referrals: Nonstaff,Physician [Primary Care Provider] - 1-2 days Decision Time: 07:28
[2018-06-04] MEDS ORDERED: IPRATROPIUM-ALBUTEROL 3 ML NEB INHALATION PRN (07:28)
[2018-06-04] MEDS ORDERED: ASPIRIN 325 MG TAB PO STA (07:28)
[2018-06-04 07:30] LABS: Band Neutrophils % 2 %; Eosinophils # (M) 0.09 k/uL (0-0.7); Lymphocytes # (M) 2.88 k/uL (1.0-4.8); Monocytes # (M) 0.74 k/uL (0-1.0); Myelocytes # (M) 0.09 k/uL (0); Myelocytes % 1 %; Neutrophils % (M) 58 %; Nucleated Red Blood Cells 0 /100 WBC (0-0); Total Cells Counted 200
[2018-06-04] MEDS: IPRATROPIUM-ALBUTEROL 3 ML NEB INHALATION SCH ×4 (07:55→21:00)
[2018-06-04] MEDS: DOXYCYCLINE 100 MG in SODIUM CHLORIDE 0.9% 100 ML IVPB SCH ×2 (10:35→19:56)
[2018-06-04] MEDS ORDERED: NON-FORMULARY DRUG (Doxylamine Succinate [Unisom] 25 MG) PO PRN (11:03)
--- NOTE | 2018-06-04 11:14 | P.HPIM ---
History of Present Illness this is a pleasant 72 years old male with past medical history of congestive heart failure/cardiomyopathy,[id number], atrial fibrillation on anticoagulation and also history of pacemaker/AICD placement, hypertension, os teoarthritis, history of alcohol abuse, who presents because of dyspnea of 2 days' duration. Patient was at [facility] and he was discharged to rehab came back a few days ago last Wednesday and since then he didn't feel all right, he was having exertional dyspnea associated with whitish yellow phlegm. He is on home oxygen at 2 L via nasal cannula Vitas looks stable. Chest x-ray showing no acute cardiopulmonary event . EKG showing atrial fibrillation with T-wave inversion in the lateral blades, rhythm at 94 BPM. CBC was unremarkable, INR 1.2, sodium 135, creatinine 1.1 and magnesium 1.5. Liver enzymes not elevated Review of Systems CONSTITUTIONAL: No fever, no malaise, no fatigue. HEENT: No recent visual problems or hearing problems. Denied any sore throat. CARDIOVASCULAR: No orthopnea, PND, no palpitations, no syncope. PULMONARY: No shortness of breath, no cough, no hemoptysis. GASTROINTESTINAL: No diarrhea, no nausea, no vomiting, no abdominal pain. Normoactive bowel sounds. NEUROLOGICAL: No headaches, no weakness, no numbness. HEMATOLOGICAL: Denies any bleeding or petechiae. GENITOURINARY: Denies any burning micturition, frequency, or urgency. MUSCULOSKELETAL/RHEUMATOLOGICAL: Denies any joint pain, swelling, or any muscle pain. ENDOCRINE: Denies any polyuria or polydipsia. Past Medical History Past Medical History: Heart Failure, Diabetes Mellitus, Hypertension, Myocardial Infarction ([place]), Osteoarthritis ([place]), Thyroid Disorder Additional Past Medical History / Comment(s): TOLD HAD "STROKE OR [place]." CARDIOMYOPATHY. SEE DR MACDONALD'S H&P. HX ALCOHOLISM. SHORT OF BREATH W/ ACTIVITY. Last Myocardial Infarction Date:: UNKNOWN History of Any Multi-Drug Resistant Organisms: None Reported Past Surgical History: AICD Additional Past Surgical History / Comment(s): AICD - [employer] 08/24/14 AT [facility]. COLONOSCOPY. Past Anesthesia/Blood Transfusion Reactions: No Reported Reaction Type of Cardiac Device: AICD Device Placement Date:: 08/2014 Past Psychological History: Anxiety, Depression Smoking Status: Former smoker - Past Family History Father History Unknown: Yes Additional Family Medical History / Comment(s): was healthy Mother Family Medical History: No Reported History Medications and Allergies Home Medications Medication Instructions Recorded Confirmed Type Cholecalciferol [Vitamin D3] 5,000 unit PO DAILY 12/20/14 06/04/18 History Diazepam [Valium] 10 mg PO HS PRN 12/20/14 06/04/18 History Levothyroxine Sodium [Synthroid] 100 mcg PO DAILY 12/20/14 06/04/18 History Losartan Potassium [Cozaar] 25 mg PO DAILY 12/20/14 06/04/18 History Metoprolol Succinate [Toprol XL] 50 mg PO DAILY 12/20/14 06/04/18 History Multivit-Min/FA/Lycopen/Lutein 1 tab PO DAILY 12/20/14 06/04/18 History [Centrum Silver Tablet] Rivaroxaban [Xarelto] 20 mg PO DAILY 12/20/14 06/04/18 History Aspirin 81 mg PO DAILY 02/24/17 06/04/18 History metFORMIN HCL [Glucophage Xr] 750 mg PO DAILY 02/24/17 06/04/18 History Ascorbic Acid [Vitamin C] 1,000 mg PO DAILY 04/06/18 06/04/18 History Doxylamine Succinate [Unisom] 25 mg PO HS PRN 04/06/18 06/04/18 History Ferrous Sulfate [Feosol] 325 mg PO DAILY 04/06/18 06/04/18 History Melatonin 5 mg PO HS 04/06/18 06/04/18 History Potassium Chloride [Klor-Con 20] 20 meq PO DAILY 04/06/18 06/04/18 History Vitamin B Complex 1 cap PO DAILY 04/06/18 06/04/18 History Furosemide [Lasix] 40 mg PO DAILY 06/04/18 06/04/18 History Allergies Allergy/AdvReac Type Severity Reaction Status Date / Time Penicillins Allergy Unknown Verified 06/04/18 07:50 Physical Exam Vitals: Vital Signs Temp Pulse Resp BP Pulse Ox 06/04/18 08:03 88 06/04/18 07:56 92 06/04/18 07:54 98.4 F 06/04/18 07:30 96 15 90/62 98 06/04/18 07:00 97.8 F 100 16 90/62 99 06/04/18 05:55 97.7 F 103 H 19 100/69 96 Intake and Output 06/03/18 06/04/18 06/04/18 22:59 06:59 14:59 Other: Weight 58.06 kg GENERAL: The patient is alert and oriented x3, not in any acute distress. Well developed, well nourished. HEENT: Pupils are round and equally reacting to light. EOMI. No scleral icterus. No conjunctival pallor. Normocephalic, atraumatic. No pharyngeal erythema. No thyromegaly. CARDIOVASCULAR: S1 and S2 present. No murmurs, rubs, or gallops. PULMONARY: Chest is clear to auscultation, no wheezing or crackles. ABDOMEN: Soft, nontender, nondistended, normoactive bowel sounds. No palpable organomegaly. MUSCULOSKELETAL: No joint swelling or deformity. EXTREMITIES: No cyanosis, clubbing, or pedal edema. NEUROLOGICAL: Gross neurological examination did not reveal any focal deficits. SKIN: No rashes. Results CBC & Chem 7: 06/04/18 06:30 06/04/18 06:30 Labs: Abnormal Lab Results - Last 24 Hours (Table) 06/04/18 06/04/18 06/04/18 Range/Units 06:30 06:30 06:30 RBC 3.71 L (4.30-5.90) m/uL Hgb 12.1 L D (13.0-17.5) gm/dL Hct 36.6 L (39.0-53.0) % Myelocytes # (Manual) 0.09 H (0) k/uL PT 12.9 H (9.0-12.0) sec INR 1.2 H (<1.2) Sodium 135 L (137-145) mmol/L Glucose 117 H (74-99) mg/dL Magnesium 1.5 L (1.6-2.3) mg/dL Assessment and Plan Assessment: Acute COPD exacerbation Acute and chronic systolic congestive heart failure History of cardiomyopathy, status post pacemaker/AICD placement History of atrial fibrillation on anticoagulation Note insulin dependent Diabetes mellitus Essential hypertension Osteoarthritis History of alcohol abuse Plan: This is a pleasant 72 years old male who presents with acute CHF. Continue with aspirin, continue with Lasix. Continue with steroids and antibiotics. Breathing treatment Cardiology consult. He wanted valium for insomnia, I counseled him especially is taking high dose of Valium, he agrees for small dose of Xanax as stated. Labs and medication were reviewed.. Continue same treat ment. Continue with symptomatic treatment. Resume home medication. Monitor lytes and vitals. DVT and GI prophylaxis. Further recommendations of the clinical course of the patient DVT prophylaxis: xarelto GI Prophylaxis: Pepcid PT/OT: Pending Prognosis is guarded
[2018-06-04 14:14] LABS: Creatine Kinase MB 0.7 ng/mL (0.0-2.4); Troponin I 0.014 ng/mL (0.000-0.034)
[2018-06-04] MEDS: NITROGLYCERIN OINT 1 INCH/GM PACKET TOPICAL SCH ×4 (16:01→21:55)
[2018-06-04] MEDS: methylPREDNISolone SOD SUCCI 40 MG/ML 1 ML VIAL IV SCH ×2 (16:13→23:01)
[2018-06-04] MEDS: FUROSEMIDE 10 MG/ML 4 ML VIAL IV SCH ×2 (16:22→19:56)
[2018-06-04 18:42] LABS: Creatine Kinase MB 0.5 ng/mL (0.0-2.4); Troponin I <0.012 ng/mL (0.000-0.034)
[2018-06-04 21:27] LABS: Glucose,Whole Blood 199 mg/dL (75-99)
[2018-06-04] MEDS: MELATONIN 5 MG TABLET PO SCH (21:54)
[2018-06-04] MEDS: ALPRAZolam 0.5 MG TAB PO PRN (22:44)
[2018-06-05] MEDS: metFORMIN 500 MG TAB PO SCH ×2 (06:22→17:50)
[2018-06-05] MEDS: LEVOTHYROXINE 100 MCG TAB PO SCH (06:22)
[2018-06-05 06:37] LABS: Glucose,Whole Blood 128 mg/dL (75-99)
[2018-06-05 07:01] LABS: HCT 32.3 % (39.0-53.0); HGB 10.8 gm/dL (13.0-17.5); MCH 33.1 pg (25.0-35.0); MCHC 33.4 g/dL (31.0-37.0); Mean Platelet Volume 8.5; Platelet Count 243 k/uL (150-450); RBC 3.26 m/uL (4.30-5.90); RDW 14.5 % (11.5-15.5)
[2018-06-05 07:04] LABS: Anion Gap 8 mmol/L; Blood Urea Nitrogen 16 mg/dL (9-20); Calcium 8.8 mg/dL (8.4-10.2); Carbon Dioxide 29 mmol/L (22-30); Chloride 97 mmol/L (98-107); Glucose 123 mg/dL (74-99); Potassium 3.4 mmol/L (3.5-5.1); Sodium 134 mmol/L (137-145)
[2018-06-05] MEDS: IPRATROPIUM-ALBUTEROL 3 ML NEB INHALATION SCH ×4 (07:06→19:29)
[2018-06-05] MEDS ORDERED: ASPIRIN 325 MG TAB PO SCH (09:00)
[2018-06-05] MEDS ORDERED: POTASSIUM CHLORIDE ER 20 MEQ TAB.ER PO STA (09:13)
--- NOTE | 2018-06-05 09:15 | P.PN ---
Subjective this is a pleasant 72 years old male with past medical history of congestive heart failure/cardiomyopathy,[id number], atrial fibrillation on anticoagulation and also history of pacemaker/AICD placement, hypertension, osteoarthritis, history of alcohol abuse, who presents because of dyspnea of 2 days' duration. Patient was at [facility] and he was discharged to rehab came back a few days ago last Wednesday and since then he didn't feel all right, he was having exertional dyspnea associated with whitish yellow phlegm. He is on home oxygen at 2 L via nasal cannula Vitas looks stable. Chest x-ray showing no acute cardiopulmonary event . EKG showing atrial fibrillation with T-wave inversion in the lateral blades, rhythm at 94 BPM. CBC was unremarkable, INR 1.2, sodium 135, creatinine 1.1 and magnesium 1.5. Liver enzymes not elevated 06/05/2018 Patient still lying in bed and he did not get out and walk. He still compl aining of from some dyspnea. He remains on doxycycline, IV Lasix and Solu- Medrol. He is also on Zoloft on metformin. Denies chest pain. Low potassium was replaced. Glucose is controlled. Objective - Vital Signs Vital signs: Vital Signs Temp 98.2 F 06/05/18 04:00 Pulse 88 06/05/18 07:17 Resp 19 06/05/18 04:00 BP 105/68 06/05/18 04:00 Pulse Ox 94 L 06/05/18 04:00 Intake & Output 06/04/18 06/05/18 06/05/18 18:59 06:59 18:59 Intake Total 300 1372 Balance 300 1372 Weight 58.06 kg 55.7 kg Intake: Intake, IV Titration 100 Amount Doxycycline 100 mg In 100 Sodium Chloride 0.9% 100 ml @ 100 mls/hr IVPB Q12HR [facility] Rx#:[id number] Oral 300 1272 Other: Voiding Method Urinal Toilet Urinal # Voids 3 - Exam GENERAL: The patient is alert and oriented x3, not in any acute distress. Well developed, well nourished. HEENT: Pupils are round and equally reacting to light. EOMI. No scleral icterus. No conjunctival pallor. Normocephalic, atraumatic. No pharyngeal erythema. No thyromegaly. CARDIOVASCULAR: S1 and S2 present. No murmurs, rubs, or gallops. PULMONARY: Chest is clear to auscultation, no wheezing or crackles. ABDOMEN: Soft, nontender, nondistended, normoactive bowel sounds. No palpable organomegaly. MUSCULOSKELETAL: No joint swelling or deformity. EXTREMITIES: No cyanosis, clubbing, or pedal edema. NEUROLOGICAL: Gross neurological examination did not reveal any focal deficits. SKIN: No rashes. - Labs CBC & Chem 7: 06/05/18 06:27 06/05/18 06:27 Labs: Abnormal Lab Results - Last 24 Hours (Table) 06/04/18 06/05/18 06/05/18 Range/Units 21:23 06:17 06:27 RBC 3.26 L (4.30-5.90) m/uL Hgb 10.8 L (13.0-17.5) gm/dL Hct 32.3 L (39.0-53.0) % Sodium (137-145) mmol/L Potassium (3.5-5.1) mmol/L Chloride (98-107) mmol/L Glucose (74-99) mg/dL POC Glucose (mg/dL) 199 H 128 H (75-99) mg/dL 06/05/18 Range/Units 06:27 RBC (4.30-5.90) m/uL Hgb (13.0-17.5) gm/dL Hct (39.0-53.0) % Sodium 134 L (137-145) mmol/L Potassium 3.4 L (3.5-5.1) mmol/L Chloride 97 L (98-107) mmol/L Glucose 123 H (74-99) mg/dL POC Glucose (mg/dL) (75-99) mg/dL Assessment and Plan Assessment: Acute COPD exacerbation Acute and chronic systolic congestive heart failure History of cardiomyopathy, status post pacemaker/AICD placement History of atrial fibrillation on anticoagulation Note insulin dependent Diabetes mellitus Essential hypertension Osteoarthritis History of alcohol abuse Plan: This is a pleasant 72 years old male who presents with acute CHF. Continue with aspirin, continue with Lasix. Continue with steroids and antibiotics. Breathing treatment Cardiology consult. He wanted valium for insomnia, I counseled him especially is taking high dose of Valium, he agrees for small dose of Xanax as stated. Labs and medication were reviewed.. Continue same treatment. Continue with symptomatic treatment. Resume home medication. Monitor lytes and vitals. DVT and GI prophylaxis. Further recommendations of the clinical course of the patient DVT prophylaxis: xarelto GI Prophylaxis: Pepcid PT/OT: Pending Prognosis is guarded
[2018-06-05 09:50] LABS: Band Neutrophils % 2 %; Lymphocytes # (M) 2.72 k/uL (1.0-4.8); Monocytes # (M) 0.88 k/uL (0-1.0); Neutrophils % (M) 53 %; Nucleated Red Blood Cells 0 /100 WBC (0-0); Total Cells Counted 100
[2018-06-05] MEDS: methylPREDNISolone SOD SUCCI 40 MG/ML 1 ML VIAL IV SCH ×3 (10:33→23:08)
[2018-06-05] MEDS: DOXYCYCLINE 100 MG in SODIUM CHLORIDE 0.9% 100 ML IVPB SCH ×2 (10:33→21:49)
[2018-06-05] MEDS: RIVAROXABAN 20 MG TAB PO SCH (10:34)
[2018-06-05] MEDS: CHOLECALCIFEROL 1,000 UNIT TAB PO SCH (10:34)
[2018-06-05] MEDS: LOSARTAN 25 MG TAB PO SCH (10:34)
[2018-06-05] MEDS: POTASSIUM CHLORIDE ER 20 MEQ TAB.ER PO SCH (10:34)
[2018-06-05] MEDS: METOPROLOL SUCCINATE (ER) 50 MG TAB.ER.24H PO SCH (10:34)
[2018-06-05] MEDS: FERROUS SULFATE 325 MG TAB PO SCH (10:34)
[2018-06-05] MEDS: FUROSEMIDE 10 MG/ML 4 ML VIAL IV SCH (10:35)
[2018-06-05] MEDS: SPIRONOLACTONE 25 MG TAB PO SCH (10:38)
--- NOTE | 2018-06-05 10:40 | CONS ---
CONSULTATION HISTORY: Mr. Lizarraga is a 72-year-old male with a history of chronic persistent atrial fibrillation, history of nonischemic cardiomyopathy, prior ICD implantation, who presented with symptoms of progressive dyspnea and cough. Apparently, the patient was admitted to [facility] not too long ago. He was in rehab, but then went home and had more dyspnea and came back to the hospital to be admitted. He underwent cardiac catheterization in 2013, had no evidence of obstructive lung disease with evidence of nonischemic cardiomyopathy. He has chronic persistent atrial fibrillation and he has an ICD implantation. He has chronic dyspnea on exertion. No chest pain. No peripheral edema. No clear PND nor orthopnea. He has no palpitation. No syncope. His coronary risk factors are remarkable for history of chronic tobacco use, history of hypertension and diabetes. MEDICATION: Levothyroxine, metoprolol succinate 50 mg daily, Lasix 40 mg daily, aspirin once a day, losartan 25 mg daily, potassium 20 mg daily, Xarelto 20 mg daily, metformin 750 mg daily, , vitamin B. REVIEW OF SYSTEMS: RESPIRATORY: He has dyspnea on exertion, cough, has chronic tobacco use. GI SYSTEM: No recent GI bleeding. No peptic ulcer disease. SYSTEM: No dysuria or hematuria. NERVOUS SYSTEM: No history of seizure, questionable stroke. SOCIAL HISTORY: He used to drink a large amount of alcohol. According to him, he is not drinking as much. PHYSICAL EXAMINATION: A 72-year-old male, alert, oriented, in no apparent distress. Blood pressure 105/60 with a heart rate in the 60s. Head is normocephalic, sclerae nonicteric. Neck good upstroke, no bruit, no jugular venous distention. Lungs with few crackles at the bases. Heart irregular regular. S1, S2. No S3 with a systolic murmur at the apex. No diastolic murmur no rub. Abdomen is soft, nontender. Positive bowel sounds. No organomegaly. Extremities no edema. Intact distal pulses. LAB DATA: Lab data revealed troponin 0.018, 0.014 and less than 0.012. NT proBNP of 4230. BUN and creatinine of 15 and 1.1, hemoglobin of 10.8. EKG revealed atrial fibrillation with nonspecific ST-T wave changes. Chest x-ray revealed no acute infiltrate. IMPRESSION: 1. Symptoms of progressive dyspnea on exertion, probably with an element of CHF in a patient with known history of nonischemic cardiomyopathy, probably superimposed on bronchitis. 2. Chronic persistent atrial fibrillation, anticoagulated. 3. Status post ICD implant. 4. History of hypertension. 5. History of diabetes. 6. Chronic tobacco use. 7. Chronic alcohol intake. RECOMMENDATIONS: From the cardiac standpoint, I will obtain echocardiogram with Doppler. I will stop his aspirin. I will switch him to oral diuretics. Depending on his progress, further recommendations will be made. I have discussed with him the importance of alcohol and tobacco cessation. Thank you for this consult. We will follow with you. MMODL / IJN: [id number] /
[2018-06-05] MEDS: NITROGLYCERIN OINT 1 INCH/GM PACKET TOPICAL SCH (10:52)
[2018-06-05 11:56] LABS: Glucose,Whole Blood 264 mg/dL (75-99)
[2018-06-05 17:08] LABS: Glucose,Whole Blood 309 mg/dL (75-99)
[2018-06-05] MEDS ORDERED: Magnesium Replacement Protocol 1 EACH MISC MISCELLANE PRN (17:10)
[2018-06-05] MEDS: INSULIN ASPART (NovoLOG) 100 UNIT/ML VIAL SQ SCH ×2 (17:50→21:49)
[2018-06-05] MEDS: MAGNESIUM SULFATE-D5W PMX 1 GM in DEXTROSE/WATER 1 100ML.BAG IVPB SCH ×2 (17:50→23:07)
[2018-06-05] MEDS: FUROSEMIDE 40 MG TAB PO SCH (17:50)
[2018-06-05 21:03] LABS: Glucose,Whole Blood 326 mg/dL (75-99)
[2018-06-05] MEDS: MELATONIN 5 MG TABLET PO SCH ×2 (21:39→21:54)
[2018-06-05] MEDS: ALPRAZolam 0.5 MG TAB PO PRN (21:49)
[2018-06-06 06:27] LABS: Glucose,Whole Blood 179 mg/dL (75-99)
[2018-06-06] MEDS: MAGNESIUM SULFATE-D5W PMX 1 GM in DEXTROSE/WATER 1 100ML.BAG IVPB SCH (06:46)
[2018-06-06] MEDS: INSULIN ASPART (NovoLOG) 100 UNIT/ML VIAL SQ SCH ×4 (06:47→21:26)
[2018-06-06] MEDS: LEVOTHYROXINE 100 MCG TAB PO SCH (06:47)
[2018-06-06] MEDS: metFORMIN 500 MG TAB PO SCH ×2 (06:47→17:54)
[2018-06-06 06:59] LABS: Anion Gap 10 mmol/L; Blood Urea Nitrogen 18 mg/dL (9-20); Calcium 9.7 mg/dL (8.4-10.2); Carbon Dioxide 31 mmol/L (22-30); Chloride 94 mmol/L (98-107); Glucose 164 mg/dL (74-99); Magnesium 1.8 mg/dL (1.6-2.3); Potassium 4.3 mmol/L (3.5-5.1); Sodium 135 mmol/L (137-145)
--- NOTE | 2018-06-06 08:46 | P.PN ---
Subjective Progress Note Date: 06/06/18 Principal diagnosis: CHF secondary to systolic dysfunction This is a pleasant 72-year-old gentleman with a past medical history significant for chronic persistent atrial fibrillation, history of nonischemic cardiomyopathy and status post AICD, as well as multiple comorbid conditions, who was admitted to the hospital with dyspnea and was diagnosed with CHF exacerbation secondary to systolic dysfunction as well as bronchitis. On follow-up with him today, he seems to be feeling better in terms of shortness of breath. Denies having any chest pain or chest discomfort. No dizziness or lightheadedness, or syncope. He was switched to oral Lasix yesterday. He seems to be tolerating it very well. He is on oral anticoagulation with Xarelto. Objective - Vital Signs Vital signs: Vital Signs Temp 98.5 F 06/06/18 04:00 Pulse 80 06/06/18 04:00 Resp 18 06/06/18 04:00 BP 130/65 06/06/18 04:00 Pulse Ox 98 06/06/18 04:00 Intake & Output 06/05/18 06/06/18 06/06/18 18:59 06:59 18:59 Intake Total 572 570 Balance 572 570 Weight 55.8 kg Intake: IV 30 0.9 30 Intake, IV Titration 100 300 Amount Doxycycline 100 mg In 100 100 Sodium Chloride 0.9% 100 ml @ 100 mls/hr IVPB Q12HR [facility] Rx#:[id number] Magnesium Sulfate-D5w Pmx 200 1 gm In Dextrose/Water 1 100ml.bag @ 100 mls/hr IVPB Q1H [facility] Rx#: [id number] Oral 472 240 Other: Voiding Method Toilet Urinal # Voids 0 4 1 # Bowel Movements 1 1 - Constitutional General appearance: Present: no acute distress - Respiratory Respiratory: bilateral: diminished - Cardiovascular Rhythm: irregularly irregular Heart sounds: normal: S1, S2 - Labs CBC & Chem 7: 06/05/18 06:27 06/06/18 06:14 Labs: Abnormal Lab Results - Last 24 Hours (Table) 06/05/18 06/05/18 06/05/18 Range/Units 06:27 11:54 17:06 Sodium (137-145) mmol/L Chloride (98-107) mmol/L Carbon Dioxide (22-30) mmol/L Glucose (74-99) mg/dL POC Glucose (mg/dL) 264 H 309 H (75-99) mg/dL Magnesium 1.4 L (1.6-2.3) mg/dL 06/05/18 06/06/18 06/06/18 Range/Units 21:02 06:14 06:26 Sodium 135 L (137-145) mmol/L Chloride 94 L (98-107) mmol/L Carbon Dioxide 31 H (22-30) mmol/L Glucose 164 H (74-99) mg/dL POC Glucose (mg/dL) 326 H 179 H (75-99) mg/dL Magnesium (1.6-2.3) mg/dL Assessment and Plan Assessment: Assessment #1 CHF exacerbation secondary to systolic dysfunction #2 possible bronchitis #3 chronic persistent atrial fibrillation with controlled heart rate #4 history of nonischemic cardiomyopathy and status post AICD #5 multiple comorbid conditions Plan #1 continue the current medical regimen including oral diuretics #2 from the cardiovascular standpoint overview, the patient possibly can be discharged home
[2018-06-06] MEDS: CHOLECALCIFEROL 1,000 UNIT TAB PO SCH (08:54)
[2018-06-06] MEDS: METOPROLOL SUCCINATE (ER) 50 MG TAB.ER.24H PO SCH (08:54)
[2018-06-06] MEDS: SPIRONOLACTONE 25 MG TAB PO SCH (08:54)
[2018-06-06] MEDS: FUROSEMIDE 40 MG TAB PO SCH ×2 (08:54→17:54)
[2018-06-06] MEDS: FERROUS SULFATE 325 MG TAB PO SCH (08:54)
[2018-06-06] MEDS: LOSARTAN 25 MG TAB PO SCH (08:54)
[2018-06-06] MEDS: POTASSIUM CHLORIDE ER 20 MEQ TAB.ER PO SCH (08:54)
[2018-06-06] MEDS: RIVAROXABAN 20 MG TAB PO SCH (08:55)
[2018-06-06] MEDS: methylPREDNISolone SOD SUCCI 40 MG/ML 1 ML VIAL IV SCH ×2 (08:55→17:54)
[2018-06-06] MEDS: DOXYCYCLINE 100 MG in SODIUM CHLORIDE 0.9% 100 ML IVPB SCH ×2 (08:55→20:37)
[2018-06-06] MEDS: IPRATROPIUM-ALBUTEROL 3 ML NEB INHALATION SCH ×4 (09:00→21:01)
[2018-06-06 10:55] VITALS: BMI 17.2
[2018-06-06 11:40] LABS: Glucose,Whole Blood 216 mg/dL (75-99)
[2018-06-06 14:51] LABS: Hemoglobin A1C 6.8 % (4.0-6.0)
[2018-06-06 17:02] LABS: Glucose,Whole Blood 230 mg/dL (75-99)
--- NOTE | 2018-06-06 18:57 | ECHOF ---
Referral Reason:cm MEASUREMENTS -------- HEIGHT: 180.3 cm WEIGHT: 55.8 kg BP: 130/65 IVSd: 1.0 cm (0.6 - 1.1) LVIDd: 4.7 cm (3.9 - 5.3) LVPWd: 1.2 cm (0.6 - 1.1) IVSs: 1.4 cm LVIDs: 3.7 cm LVPWs: 1.5 cm LA Diam: 3.3 cm (2.7 - 3.8) RVIDd: 2.7 cm (< 3.3) LAESV Index (A-L): 44.71 ml/m Ao Diam: 3.6 cm (2.0 - 3.7) AV Cusp: 1.5 cm (1.5 - 2.6) EPSS: 1.2 cm AV maxP.31 mmHg AV meanP.07 mmHg AR PHT: 830 ms RAP: 5.00 mmHg RVSP: 32.77 mmHg MV EF SLOPE: 287.64 mm/s (70 - 150) MV EXCURSION: 18.74 mm (> 18.000) FINDINGS -------- Atrial fibrillation. This was a technically adequate study. The left ventricular size is normal. There is borderline concentric left ventricular hypertrophy. Overall left ventricular systolic function is moderately impaired with, an EF between 35 - 40 %. The right ventricle is normal in size. LA is severely dilated >40 ml/m2 The right atrium is normal in size. There is moderate aortic valve sclerosis. There is mild aortic regurgitation. There is mild aorti c stenosis present. Peak/mean gradient across the Aortic Valve is 20.31mmHg / 10.07mmHg. The mitral valve leaflets are mildly thickened. Mild mitral regurgitation is present. Mild tricuspid regurgitation present. Right ventricular systolic pressure is normal at < 35 mmHg. Trace/mild (physiologic) pulmonic regurgitation. The aortic root size is normal. Normal inferior vena cava with normal inspiratory collapse consistent with estimated right atrial pre ssure of 5 mmHg. There is no pericardial effusion. CONCLUSIONS -------- 1. Atrial fibrillation. 2. This was a technically adequate study. 3. The left ventricular size is normal. 4. There is borderline concentric left ventricular hypertrophy. 5. Overall left ventricular systolic function is moderately impaired with, an EF between 35 - 40 %. 6. The right ventricle is normal in size. 7. LA is severely dilated >40 ml/m2 8. The right atrium is normal in size. 9. There is moderate aortic valve sclerosis. 10. There is mild aortic regurgitation. 11. There is mild aortic stenosis present. 12. Peak/mean gradient across the Aortic Valve is 20.31mmHg / 10.07mmHg. 13. The mitral valve leaflets are mildly thickened. 14. Mild mitral regurgitation is present. 15. Mild tricuspid regurgitation present. 16. Right ventricular systolic pressure is normal at < 35 mmHg. 17. Trace/mild (physiologic) pulmonic regurgitation. 18. The aortic root size is normal. 19. Normal inferior vena cava with normal inspiratory collapse consistent with estimated right atrial pressure of 5 mmHg. 20. There is no pericardial effusion. [employer] FINAL INSPECTOR: Kelsey Tena RDCS
--- NOTE | 2018-06-06 19:38 | P.PN ---
Subjective this is a pleasant 72 years old male with past medical history of congestive heart failure/cardiomyopathy,[id number], atrial fibrillation on anticoagulation and also history of pacemaker/AICD placement, hypertension, osteoarthritis, history of alcohol abuse, who presents because of dyspnea of 2 days' duration. Patient was at [facility] and he was discharged to rehab came back a few days ago last Wednesday and since then he didn't feel all right, he was having exertional dyspnea associated with whitish yellow phlegm. He is on home oxygen at 2 L via nasal cannula Vitas looks stable. Chest x-ray showing no acute cardiopulmonary event . EKG showing atrial fibrillation with T-wave inversion in the lateral blades, rhythm at 94 BPM. CBC was unremarkable, INR 1.2, sodium 135, creatinine 1.1 and magnesium 1.5. Liver enzymes not elevated 06/05/2018 Patient still lying in bed and he did not get out and walk. He still compl aining of from some dyspnea. He remains on doxycycline, IV Lasix and Solu- Medrol. He is also on Zoloft on metformin. Denies chest pain. Low potassium was replaced. Glucose is controlled. 06/06/18 pt is improved significantly , no chest pain or dyspnea while lying in bed, he has previous h/o of drinking and smoking, pt is counseled and he does not want to smoke any more, pt has been evaluated by cardiology today and I discussed the case with them , they agree pt is stable for discharge from their perspective. however pt has no ride and can not go today in this bad weather and he lives far , pt is medically is stable for discharge Objective - Vital Signs Vital signs: Vital Signs Temp 98.1 F 06/06/18 16:10 Pulse 120 H 06/06/18 16:10 Resp 18 06/06/18 16:10 BP 102/59 06/06/18 16:10 Pulse Ox 95 06/06/18 16:10 Intake & Output 06/06/18 06/06/18 06/07/18 06:59 18:59 06:59 Intake Total 570 1200 Balance 570 1200 Weight 55.8 kg 55.8 kg Intake: IV 30 0.9 30 Intake, IV Titration 300 Amount Doxycycline 100 mg In 100 Sodium Chloride 0.9% 100 ml @ 100 mls/hr IVPB Q12HR [facility] Rx#:[id number] Magnesium Sulfate-D5w Pmx 200 1 gm In Dextrose/Water 1 100ml.bag @ 100 mls/hr IVPB Q1H [facility] Rx#: [id number] Oral 240 1200 Other: Voiding Method Toilet Urinal # Voids 4 2 # Bowel Movements 1 - Exam GENERAL: The patient is alert and oriented x3, not in any acute distress. Well developed, well nourished. HEENT: Pupils are round and equally reacting to light. EOMI. No scleral icterus. No conjunctival pallor. Normocephalic, atraumatic. No pharyngeal erythema. No thyromegaly. CARDIOVASCULAR: S1 and S2 present. No murmurs, rubs, or gallops. PULMONARY: Chest is clear to auscultation, no wheezing or crackles. ABDOMEN: Soft, nontender, nondistended, normoactive bowel sounds. No palpable organomegaly. MUSCULOSKELETAL: No joint swelling or deformity. EXTREMITIES: No cyanosis, clubbing, or pedal edema. NEUROLOGICAL: Gross neurological examination did not reveal any focal deficits. SKIN: No rashes. - Labs CBC & Chem 7: 06/05/18 06:27 06/06/18 06:14 Labs: Abnormal Lab Results - Last 24 Hours (Table) 06/05/18 06/05/18 06/06/18 Range/Units 06:27 21:02 06:14 Sodium 135 L (137-145) mmol/L Chloride 94 L (98-107) mmol/L Carbon Dioxide 31 H (22-30) mmol/L Glucose 164 H (74-99) mg/dL POC Glucose (mg/dL) 326 H (75-99) mg/dL Hemoglobin A1c 6.8 H (4.0-6.0) % 06/06/18 06/06/18 06/06/18 Range/Units 06:26 11:37 16:59 Sodium (137-145) mmol/L Chloride (98-107) mmol/L Carbon Dioxide (22-30) mmol/L Glucose (74-99) mg/dL POC Glucose (mg/dL) 179 H 216 H 230 H (75-99) mg/dL Hemoglobin A1c (4.0-6.0) % Assessment and Plan Assessment: Acute COPD exacerbation Acute and chronic systolic congestive heart failure History of cardiomyopathy, status post pacemaker/AICD placement History of atrial fibrillation on anticoagulation Note insulin dependent Diabetes mellitus Essential hypertension Osteoarthritis History of alcohol abuse Plan: This is a pleasant 72 years old male who presents with acute CHF. Continue with aspirin, continue with Lasix. Continue with steroids and antibiotics. Breathing treatment Cardiology consult. He wanted valium for insomnia, I counseled him especially is taking high dose of Valium, he agrees for small dose of Xanax as stated. Labs and medication were reviewed.. Continue same treatment. Continue with symptomatic treatment. Resume home medication. Monitor lytes and vitals. DVT and GI prophylaxis. Further recommendations of the clinical course of the patient DVT prophylaxis: xarelto GI Prophylaxis: Pepcid PT/OT: Pending Prognosis is guarded
[2018-06-06] MEDS: MELATONIN 5 MG TABLET PO SCH (20:38)
[2018-06-06] MEDS: ALPRAZolam 0.5 MG TAB PO PRN (20:38)
[2018-06-06 21:00] LABS: Glucose,Whole Blood 129 mg/dL (75-99)
[2018-06-07 06:28] LABS: Glucose,Whole Blood 206 mg/dL (75-99)
[2018-06-07] MEDS: INSULIN ASPART (NovoLOG) 100 UNIT/ML VIAL SQ SCH ×4 (06:56→21:41)
[2018-06-07] MEDS: LEVOTHYROXINE 100 MCG TAB PO SCH (06:56)
[2018-06-07] MEDS: metFORMIN 500 MG TAB PO SCH ×2 (06:56→17:22)
[2018-06-07] MEDS: IPRATROPIUM-ALBUTEROL 3 ML NEB INHALATION SCH ×4 (07:20→19:48)
[2018-06-07] MEDS: FUROSEMIDE 40 MG TAB PO SCH ×2 (08:26→17:21)
[2018-06-07] MEDS: POTASSIUM CHLORIDE ER 20 MEQ TAB.ER PO SCH (08:26)
[2018-06-07] MEDS: METOPROLOL SUCCINATE (ER) 50 MG TAB.ER.24H PO SCH (08:26)
[2018-06-07] MEDS: SPIRONOLACTONE 25 MG TAB PO SCH (08:26)
[2018-06-07] MEDS: LOSARTAN 25 MG TAB PO SCH ×2 (08:26→09:02)
[2018-06-07] MEDS: FERROUS SULFATE 325 MG TAB PO SCH (08:26)
[2018-06-07] MEDS: predniSONE 20 MG TAB PO SCH (08:26)
[2018-06-07] MEDS: RIVAROXABAN 20 MG TAB PO SCH (08:27)
[2018-06-07] MEDS: CHOLECALCIFEROL 1,000 UNIT TAB PO SCH (08:36)
--- NOTE | 2018-06-07 09:04 | P.PN ---
Subjective Progress Note Date: 06/07/18 Principal diagnosis: CHF secondary to systolic dysfunction This is a pleasant 72-year-old gentleman with a past medical history significant for chronic persistent atrial fibrillation, history of nonischemic cardiomyopathy and status post AICD, as well as multiple comorbid conditions, who was admitted to the hospital with dyspnea and was diagnosed with CHF exacerbation secondary to systolic dysfunction as well as bronchitis. On follow-up with the patient today, he still short of breath even with minimal exertion. He states he walked to the bathroom and he was short of breath. No chest pain or chest discomfort. Objective - Vital Signs Vital signs: Vital Signs Temp 97.7 F 06/07/18 08:00 Pulse 73 06/07/18 08:00 Resp 18 06/07/18 08:00 BP 98/65 06/07/18 08:00 Pulse Ox 97 06/07/18 08:00 Intake & Output 06/06/18 06/07/18 06/07/18 18:59 06:59 18:59 Intake Total 1200 240 Output Total 400 Balance 1200 240 -400 Weight 55.8 kg 55.8 kg Intake: Intake, IV Titration 240 Amount Doxycycline 100 mg In 240 Sodium Chloride 0.9% 100 ml @ 100 mls/hr IVPB Q12HR [facility] Rx#:[id number] Oral 1200 Output: Urine 400 Other: Voiding Method Toilet Toilet Urinal Urinal # Voids 2 3 # Bowel Movements 1 1 - Constitutional General appearance: Present: no acute distress - Respiratory Respiratory: bilateral: diminished - Cardiovascular Rhythm: irregularly irregular Heart sounds: normal: S1, S2 Abnormal Heart Sounds: Present: systolic murmur - Labs CBC & Chem 7: 06/05/18 06:27 06/06/18 06:14 Labs: Abnormal Lab Results - Last 24 Hours (Table) 06/05/18 06/06/18 06/06/18 Range/Units 06:27 11:37 16:59 POC Glucose (mg/dL) 216 H 230 H (75-99) mg/dL Hemoglobin A1c 6.8 H (4.0-6.0) % 06/06/18 06/07/18 Range/Units 20:59 06:27 POC Glucose (mg/dL) 129 H 206 H (75-99) mg/dL Hemoglobin A1c (4.0-6.0) % Assessment and Plan Assessment: Assessment #1 CHF exacerbation secondary to systolic dysfunction #2 possible bronchitis #3 chronic persistent atrial fibrillation with controlled heart rate #4 history of nonischemic cardiomyopathy and status post AICD #5 multiple comorbid conditions Plan #1 continue the current medical regimen including oral diuretics #2 from the cardiovascular standpoint overview, the patient possibly can be discharged home
[2018-06-07] MEDS: DOXYCYCLINE 100 MG in SODIUM CHLORIDE 0.9% 100 ML IVPB SCH ×2 (10:57→20:02)
[2018-06-07 11:44] LABS: Glucose,Whole Blood 168 mg/dL (75-99)
[2018-06-07] MEDS ORDERED: FUROSEMIDE 10 MG/ML 4 ML VIAL IV SCH (14:00)
[2018-06-07 16:42] LABS: Glucose,Whole Blood 236 mg/dL (75-99)
[2018-06-07] MEDS: MELATONIN 5 MG TABLET PO SCH (20:01)
[2018-06-07 20:08] VITALS: TEMP 97.9
[2018-06-07 21:25] LABS: Glucose,Whole Blood 252 mg/dL (75-99)
[2018-06-08 06:33] LABS: Glucose,Whole Blood 147 mg/dL (75-99)
[2018-06-08] MEDS: LEVOTHYROXINE 100 MCG TAB PO SCH (06:58)
[2018-06-08] MEDS: metFORMIN 500 MG TAB PO SCH (06:58)
[2018-06-08] MEDS: INSULIN ASPART (NovoLOG) 100 UNIT/ML VIAL SQ SCH ×2 (06:58→12:40)
[2018-06-08] MEDS: IPRATROPIUM-ALBUTEROL 3 ML NEB INHALATION SCH ×2 (08:08→11:49)
[2018-06-08] MEDS: DOXYCYCLINE 100 MG in SODIUM CHLORIDE 0.9% 100 ML IVPB SCH (09:25)
[2018-06-08] MEDS: SPIRONOLACTONE 25 MG TAB PO SCH (09:26)
[2018-06-08] MEDS: CHOLECALCIFEROL 1,000 UNIT TAB PO SCH (09:26)
[2018-06-08] MEDS: LOSARTAN 25 MG TAB PO SCH (09:26)
[2018-06-08] MEDS: POTASSIUM CHLORIDE ER 20 MEQ TAB.ER PO SCH (09:26)
[2018-06-08] MEDS: RIVAROXABAN 20 MG TAB PO SCH (09:27)
[2018-06-08] MEDS: FERROUS SULFATE 325 MG TAB PO SCH (09:27)
[2018-06-08] MEDS: predniSONE 20 MG TAB PO SCH (09:27)
[2018-06-08] MEDS: FUROSEMIDE 40 MG TAB PO SCH (09:27)
[2018-06-08] MEDS: METOPROLOL SUCCINATE (ER) 50 MG TAB.ER.24H PO SCH (09:27)
[2018-06-08 09:40] VITALS: BP 100/62; PULSE 63; RESP 20
--- NOTE | 2018-06-08 13:49 | P.PN ---
Subjective Date of service for this note is 06/07/2018 this is a pleasant 72 years old male with past medical history of congestive heart failure/cardiomyopathy,[id number], atrial fibrillation on anticoagulation and also history of pacemaker/AICD placement, hypertension, osteoarthritis, history of alcohol abuse, who presents because of dyspnea of 2 days' duration. Patient was at [facility] and he was discharged to rehab came back a few days ago last Wednesday and since then he didn't feel all right, he was having exertional dyspnea associated with whitish yellow phlegm. He is on home oxygen at 2 L via nasal cannula Vitas looks stable. Chest x-ray showing no acute cardiopulmonary event . EKG showing atrial fibrillation with T-wave inversion in the lateral blades, rhythm at 94 BPM. CBC was unremarkable, INR 1.2, sodium 135, creatinine 1.1 and magnesium 1.5. Liver enzymes not elevated 06/05/2018 Patient still lying in bed and he did not get out and walk. He still complaining of from some dyspnea. He remains on doxycycline, IV Lasix and Solu- Medrol. He is also on Zoloft on metformin. Denies chest pain. Low potassium was replaced. Glucose is controlled. 06/06/18 pt is improved significantly , no chest pain or dyspnea while lying in bed, he has previous h/o of drinking and smoking, pt is counseled and he does not want to smoke any more, pt has been evaluated by cardiology today and I discussed the case with them , they agree pt is stable for discharge from their perspective. however pt has no ride and can not go today in this bad weather and he lives far, pt is medically is stable for discharge Date of service for this note is 06/07/2018 Patient seen and examined by me at bedside, patient was doing well patient has been treated by piping blocker team for discharge, transportation has been set up for him and patient, he has oxygen. However prior to leaving which was around 5 PM patient change his mind and since its to wait for him to leave and if he is going to leave his going to call 911 to come back to the hospital course was delayed for him to live. Patient was kept in the hospital for arrangement for discharge Next day I spoke with his PCP Dr. Odell Araiza, I updated the case with him with recommendation to referral to his piping blocker and pigment making supervisor and he kindly took note of it. Appointment has been set for the patient with his PCP as well to which he agrees to go to. Objective - Vital Signs Vital signs: Vital Signs Temp 97.9 F 06/08/18 08:00 Pulse 96 06/08/18 08:20 Resp 20 06/08/18 08:00 BP 100/62 06/08/18 08:00 Pulse Ox 94 L 06/08/18 08:08 Intake & Output 06/07/18 06/08/18 06/08/18 18:59 06:59 18:59 Intake Total 660 Output Total 1000 Balance -340 Weight 55 kg Intake: Oral 660 Output: Urine 1000 Other: Voiding Method Toilet Toilet Urinal # Voids 1 1 # Bowel Movements 1 - Exam GENERAL: The patient is alert and oriented x3, not in any acute distress. Well developed, well nourished. HEENT: Pupils are round and equally reacting to light. EOMI. No scleral icterus. No conjunctival pallor. Normocephalic, atraumatic. No pharyngeal erythema. No thyromegaly. CARDIOVASCULAR: S1 and S2 present. No murmurs, rubs, or gallops. PULMONARY: Chest is clear to auscultation, no wheezing or crackles. ABDOMEN: Soft, nontender, nondistended, normoactive bowel sounds. No palpable organomegaly. MUSCULOSKELETAL: No joint swelling or deformity. EXTREMITIES: No cyanosis, clubbing, or pedal edema. NEUROLOGICAL: Gross neurological examination did not reveal any focal deficits. SKIN: No rashes. - Labs CBC & Chem 7: 06/05/18 06:27 06/06/18 06:14 Labs: Abnormal Lab Results - Last 24 Hours (Table) 06/07/18 06/07/18 06/08/18 Range/Units 16:34 21:23 06:33 POC Glucose (mg/dL) 236 H 252 H 147 H (75-99) mg/dL Assessment and Plan Assessment: Acute COPD exacerbation Acute and chronic systolic congestive heart failure History of cardiomyopathy, status post pacemaker/AICD placement History of atrial fibrillation on anticoagulation Note insulin dependent Diabetes mellitus Essential hypertension Osteoarthritis History of alcohol abuse Plan: This is a pleasant 72 years old male who presents with acute CHF. Continue with aspirin, continue with Lasix. Continue with steroids and antibiotics. Breathing treatment Cardiology consult. He wanted valium for insomnia, I counseled him especially is taking high dose of Valium, he agrees for small dose of Xanax as stated. Labs and medication were reviewed.. Continue same treatment. Continue with symptomatic treatment. Resume home medication. Monitor lytes and vitals. DVT and GI prophylaxis. Further recommendations of the clinical course of the patient DVT prophylaxis: xarelto GI Prophylaxis: Pepcid PT/OT: Pending Prognosis is guarded
== END 2018-06-08 13:34 | disposition home health service (06) | DRG 292 ==
LOC: EC 05:49 → 3SCARD 07:28 → OBSVTOIN 06-07 11:00
PROVIDERS: ADMIT Hospitalist; ATTEND Hospitalist
DX: I11.0 Hypertensive heart disease with heart failure (principal); I48.1 Persistent atrial fibrillation; J44.1 Chronic obstructive pulmonary disease with (acute) exacerbation; E11.9 Type 2 diabetes mellitus without complications; I25.2 Old myocardial infarction; I42.9 Cardiomyopathy, unspecified; I48.2 Chronic atrial fibrillation; I50.23 Acute on chronic systolic (congestive) heart failure; M19.90 Unspecified osteoarthritis, unspecified site; Z71.6 Tobacco abuse counseling; F17.210 Nicotine dependence, cigarettes, uncomplicated; Z79.01 Long term (current) use of anticoagulants; Z79.4 Long term (current) use of insulin; Z79.82 Long term (current) use of aspirin; Z79.890 Hormone replacement therapy; E07.9 Disorder of thyroid, unspecified; Z79.899 Other long term (current) drug therapy; Z86.73 Personal history of transient ischemic attack (TIA), and cerebral infarction without residual deficits; Z95.810 Presence of automatic (implantable) cardiac defibrillator; Z99.81 Dependence on supplemental oxygen; G47.00 Insomnia, unspecified; E87.6 Hypokalemia; Z88.0 Allergy status to penicillin; F41.9 Anxiety disorder, unspecified; F32.9 Major depressive disorder, single episode, unspecified; F10.21 Alcohol dependence, in remission
CPT/HCPCS: 36415; 71046; 80048; 80053; 82553; 83036; 83735; 83880; 84484; 85025; 85610; 85730; 93005; 93306; 94640; 94760; 99285